=== PATIENT | female | born 1950 | race Caucasian/White ===

== ENCOUNTER → 2017-06-01 | Outpatient (CLI) | payer OTHER ==
[~2017-06-01] MED LIST: ASCO1ER PO; ASPI81CH; ASPI81CH PO; ASPI81EC PO; BACL10; BACL10 PO; BACL20; BACL20 PO; BETASERON; BETASERON IM; BETASERON PO; Baclofen20 MG PO; CALCAVITD PO; CALCAVITDA PO; CHOL10002; CHOL10002 PO; CITRIC ACID PO; CUBICIN RF500 MG; CYAN1000 PO; CYAN1000I IM; CYMBALTA PO; Cipro500 MG PO; DIOVAN/HCT PO; DOXY100 PO; DOXY100T53 PO; DULO30 PO; DULO60 PO; EQL FISH OIL 11 EACH PO; ERGO400 PO; FAMO40 PO; FISH OIL PO; FISH1000 PO; FLUC200 PO; FREESTYLE LITE1 EACH MC; FURO40 PO; Fosamax70 MG PO; GLIP5 PO; GLUC500 PO; GLUCOSAMINE PO; HYDACE5; HYDACE5 PO; HYDACE7.5 PO; HYDCHL12.5; HYDCHL12.5 PO; HYDCHL25 PO; HYDPAM50 PO; HYDR-86 PO; Hydrochlorothia25 MG PO; INS70/30PN SC; INS70/30PN SUBQ; INSDET100 SC; INSDET100 SQ; INSDET100 SUBQ; INSU100I6; INSUASPI SC; INSULANPEN SC; IRRISO BLADIN; IRRISO IR; LEVFLO500 PO; LEVO750 PO; Lidocaine-Priloc5 GM; MAGCHL64ER; MINO100 PO; Micro-K10 MEQ PO; NUVIGIL PO; NYST100TC TOP; Norco 7.5-3251 EACH PO; Novolog Fl100 UNIT/1 SC; OCREVUS IV; OXYB5 PO; OXYC10TA19 PO; POLTRIOPSO BOTHEYES; POTASSIUM CITRATE PO; POTCHL10ER PO; POTCHL20ER PO; POTCIT10 PO; POTCIT5 PO; PRAM.5 PO; PRED20 PO; RENACIDIN IRRIG30 ML; RENACIDIN IRRIG30 ML IR; RISE35 PO; ROSU10TA PO; RXSULTRIDS PO; SERT100; SULTRIDS; SULTRIDS PO; TAMS.4ER; TECFIDERA PO; TMP-POLYMYXIN B10 ML BOTHEYES; TRIM100 PO; VALS80 PO; VANCOMYCIN1.5 GM/251 IV; VITAMIN B IM; VITAMIN D32000 UNI1 PO; Zofran4 MG PO; [UNRECOGNIZED DRUG - OTHER]
[2017-06-01 13:47] LABS: Appearance, Urine Hazy (Clear); Bilirubin, Urine Neg (Neg); Blood, Urine 4+ (Neg); Color, Urine Yellow (P-Yellow); Glucose Qualitative, Urine 1+ (Neg); Ketones, Urine Neg (Neg); Leukocyte Esterase, Urine 3+ (Neg); Nitrite, Urine Pos (Neg); Protein, Urine 2+ (Neg); Urobilinogen, Urine 1+ (Normal)
[2017-06-01 14:07] LABS: White Blood Cells, Urine TNTC /hpf (0-5)
[2017-06-01 14:08] LABS: Bacteria Mod /hpf; Red Blood Cells, Urine 0-2 /hpf (0-2); Squamous Epithelial Cells Not Seen /hpf (Few)
== END | disposition home or self-care (01) ==
LOC: OLS 11:54 → LAB SHORT 11:54
PROVIDERS: Urology
DX: N39.0 Urinary tract infection, site not specified (principal)
CPT/HCPCS: 81001; 87077; 87086; 87186

== ENCOUNTER 2017-06-02 15:07 | Emergency (ER) | payer OTHER ==
[~2017-06-02] VITALS: Ht 170.2 cm; Wt 113.4 kg
[~2017-06-02 15:07] MED LIST changes: -LEVFLO500 PO; -MINO100 PO
[2017-06-02 15:52] LABS: BASOPHILS ABSOLUTE AUTO 0.02 K/mm3 (0.00-0.23); BASOPHILS PERCENT AUTO 0 % (0-2); EOSINOPHILS ABSOLUTE AUTO 0.29 K/mm3 (0.00-0.68); EOSINOPHILS PERCENT AUTO 4 % (0-6); Hematocrit 47.4 % (33.0-51.0); Hemoglobin 15.1 g/dL (11.5-16.0); IMMATURE GRAN ABSOLUTE AUTO 0.02 K/mm3 (0.00-0.10); IMMATURE GRAN PERCENT AUTO 0 % (0-1); LYMPHOCYTES ABSOLUTE AUTO 1.05 K/mm3 (0.84-5.20); LYMPHOCYTES PERCENT AUTO 15 % (21-46); MONOCYTES ABSOLUTE AUTO 1.07 K/mm3 (0.16-1.47); MONOCYTES PERCENT AUTO 15 % (4-13); Mean Corpuscular HGB 31.5 pg (26.0-34.0); Mean Corpuscular HGB Conc 31.9 g/dL (31.5-36.5); Mean Corpuscular Volume 99 fL (80-100); Mean Platelet Volume 10.9 fL (9.1-12.4); NEUTROPHILS ABSOLUTE AUTO 4.65 K/mm3 (1.96-9.15); NEUTROPHILS PERCENT AUTO 65 % (41-73); Platelet Count 157 K/mm3 (150-400); RDW Coefficient Variation 14.8 % (11.7-14.2); RDW Standard Deviation 53.3 fL (35.1-46.3)
[2017-06-02 16:13] LABS: Alanine Aminotransfer (ALT/SGP 33 U/L (12-78); Albumin, Blood 2.7 g/dL (3.4-5.0); Albumin/Globulin Ratio 0.7 (0.8-1.8); Alk Phos 93 U/L (50-136); Anion Gap 7 mmol/L (6-16); Aspartate Aminotrans (AST/SGOT 25 U/L (12-37); Bilirubin, Total 0.4 mg/dL (0.1-1.0); Blood Urea Nitrogen 19 mg/dL (8-24); Bun/Creatinine Ratio 23.4 (12.0-20.0); CO2, Blood 30 mmol/L (21-32); Calcium, Blood 8.9 mg/dL (8.5-10.1); Chloride, Blood 103 mmol/L (98-108); Creatinine, Blood 0.81 mg/dL (0.40-1.00); Glomerular Filtration Rate >60 (60-); Glucose, Blood 259 mg/dL (70-99); Sodium, Blood 140 mmol/L (136-145); Total Protein, Blood 6.7 g/dL (6.4-8.2)
[2017-06-02 16:20] LABS: Influenza A Negative (NEGATIVE); Influenza B Negative (NEGATIVE)
== END 2017-06-02 17:45 | disposition left against medical advice (07) ==
LOC: ER 15:07
PROVIDERS: Emergency Medicine; Physician Assistant
DX: Z53.21 Procedure and treatment not carried out due to patient leaving prior to being seen by health care provider (principal)
CPT/HCPCS: 36415; 80053; 85025; 87804; 99283

== ENCOUNTER → 2017-09-12 | Outpatient (CLI) | payer OTHER | END | disposition home or self-care (01) | LOC: PLD 08:14 → LAB SHORT 08:14 | DX: N95.0 Postmenopausal bleeding (principal) | CPT/HCPCS: 88305 ==

== ENCOUNTER → 2017-09-12 | Outpatient (CLI) | payer OTHER ==
[2017-09-15 10:32] LABS: HPV Genotype 16 Not Detected (NOTDET); HPV Genotype 18 Not Detected (NOTDET)
[2017-09-16 12:11] LABS: HPV High Risk Other Not Detected (NOTDET)
== END | disposition home or self-care (01) ==
LOC: LAB SHORT 13:52 → LAB 13:52
PROVIDERS: Obstetrics & Gynecology
DX: Z01.419 Encounter for gynecological examination (general) (routine) without abnormal findings (principal)
CPT/HCPCS: 87624; G0123

== ENCOUNTER 2017-09-28 12:59 | Emergency (ER) | payer OTHER ==
[~2017-09-28] VITALS: Ht 167.6 cm; Wt 108.9 kg
[2017-09-28 14:13] LABS: BASOPHILS ABSOLUTE AUTO 0.02 K/mm3 (0.00-0.23); BASOPHILS PERCENT AUTO 0 % (0-2); EOSINOPHILS ABSOLUTE AUTO 0.01 K/mm3 (0.00-0.68); EOSINOPHILS PERCENT AUTO 0 % (0-6); Hematocrit 49.3 % (33.0-51.0); Hemoglobin 16.4 g/dL (11.5-16.0); IMMATURE GRAN ABSOLUTE AUTO 0.02 K/mm3 (0.00-0.10); IMMATURE GRAN PERCENT AUTO 0 % (0-1); LYMPHOCYTES ABSOLUTE AUTO 0.55 K/mm3 (0.84-5.20); LYMPHOCYTES PERCENT AUTO 7 % (21-46); MONOCYTES ABSOLUTE AUTO 0.48 K/mm3 (0.16-1.47); MONOCYTES PERCENT AUTO 6 % (4-13); Mean Corpuscular HGB 31.2 pg (26.0-34.0); Mean Corpuscular HGB Conc 33.3 g/dL (31.5-36.5); Mean Corpuscular Volume 94 fL (80-100); Mean Platelet Volume 10.6 fL (9.1-12.4); NEUTROPHILS ABSOLUTE AUTO 6.58 K/mm3 (1.96-9.15); NEUTROPHILS PERCENT AUTO 86 % (41-73); Platelet Count 130 K/mm3 (150-400); RDW Coefficient Variation 14.8 % (11.7-14.2); RDW Standard Deviation 51.1 fL (35.1-46.3); Red Blood Cell Count 5.25 M/mm3 (3.80-5.20); White Blood Cell Count 7.66 K/mm3 (4.00-11.30)
[2017-09-28 14:26] LABS: Alanine Aminotransfer (ALT/SGP 38 U/L (12-78); Albumin, Blood 2.9 g/dL (3.4-5.0); Albumin/Globulin Ratio 0.6 (0.8-1.8); Alk Phos 105 U/L (50-136); Anion Gap 9 mmol/L (6-16); Aspartate Aminotrans (AST/SGOT 34 U/L (12-37); Blood Urea Nitrogen 16 mg/dL (8-24); Bun/Creatinine Ratio 21.9 (12.0-20.0); CO2, Blood 27 mmol/L (21-32); Chloride, Blood 100 mmol/L (98-108); Creatinine, Blood 0.73 mg/dL (0.40-1.00); Globulin, Blood 4.6 g/dL (2.2-4.0); Glomerular Filtration Rate >60 (60-); Glucose, Blood 274 mg/dL (70-99); Potassium, Blood 3.6 mmol/L (3.5-5.5); Sodium, Blood 136 mmol/L (136-145); Total Protein, Blood 7.5 g/dL (6.4-8.2)
[2017-09-28] MEDS ORDERED: LEVFLO500 PO (15:42)
== END 2017-09-28 18:30 | disposition home or self-care (01) ==
LOC: ER 12:59
PROVIDERS: Emergency Medicine
DX: N39.0 Urinary tract infection, site not specified (principal); I05.0 Rheumatic mitral stenosis; Z88.1 Allergy status to other antibiotic agents; Z88.8 Allergy status to other drugs, medicaments and biological substances; Z79.899 Other long term (current) drug therapy; Z79.4 Long term (current) use of insulin; E11.9 Type 2 diabetes mellitus without complications; I10 Essential (primary) hypertension
CPT/HCPCS: 36415; 71045; 80053; 83605; 85025; 93005; 93010; 96365; 99283; J1956; J7030; J7120

== ENCOUNTER 2018-01-13 14:59 | Emergency (ER) | payer OTHER ==
[~2018-01-13] VITALS: Ht 172.7 cm; Wt 108.9 kg
[~2018-01-13 14:59] MED LIST changes: +LEVFLO500 PO
[2018-01-13 15:43] LABS: BASOPHILS ABSOLUTE AUTO 0.05 K/mm3 (0.00-0.23); BASOPHILS PERCENT AUTO 1 % (0-2); EOSINOPHILS ABSOLUTE AUTO 0.29 K/mm3 (0.00-0.68); EOSINOPHILS PERCENT AUTO 4 % (0-6); Hematocrit 45.8 % (33.0-51.0); Hemoglobin 14.6 g/dL (11.5-16.0); IMMATURE GRAN ABSOLUTE AUTO 0.01 K/mm3 (0.00-0.10); IMMATURE GRAN PERCENT AUTO 0 % (0-1); LYMPHOCYTES ABSOLUTE AUTO 0.94 K/mm3 (0.84-5.20); LYMPHOCYTES PERCENT AUTO 12 % (21-46); MONOCYTES ABSOLUTE AUTO 0.63 K/mm3 (0.16-1.47); MONOCYTES PERCENT AUTO 8 % (4-13); Mean Corpuscular HGB Conc 31.9 g/dL (31.5-36.5); Mean Corpuscular Volume 94 fL (80-100); NEUTROPHILS ABSOLUTE AUTO 5.71 K/mm3 (1.96-9.15); NEUTROPHILS PERCENT AUTO 75 % (41-73); Platelet Count 186 K/mm3 (150-400); RDW Coefficient Variation 15.1 % (11.7-14.2); RDW Standard Deviation 52.7 fL (35.1-46.3); Red Blood Cell Count 4.86 M/mm3 (3.80-5.20); White Blood Cell Count 7.63 K/mm3 (4.00-11.30)
[2018-01-13 15:54] LABS: Alanine Aminotransfer (ALT/SGP 24 U/L (12-78); Albumin, Blood 2.9 g/dL (3.4-5.0); Albumin/Globulin Ratio 0.7 (0.8-1.8); Alk Phos 77 U/L (50-136); Anion Gap 5 mmol/L (6-16); Aspartate Aminotrans (AST/SGOT 18 U/L (12-37); Bilirubin, Total 0.7 mg/dL (0.1-1.0); Blood Urea Nitrogen 14 mg/dL (8-24); Bun/Creatinine Ratio 18.7 (12.0-20.0); CO2, Blood 32 mmol/L (21-32); Calcium, Blood 8.6 mg/dL (8.5-10.1); Chloride, Blood 102 mmol/L (98-108); Creatinine, Blood 0.75 mg/dL (0.40-1.00); Globulin, Blood 4.4 g/dL (2.2-4.0); Glomerular Filtration Rate >60 (60-); Glucose, Blood 121 mg/dL (70-99); Potassium, Blood 3.4 mmol/L (3.5-5.5); Sodium, Blood 139 mmol/L (136-145); Total Protein, Blood 7.3 g/dL (6.4-8.2)
[2018-01-13] MEDS ORDERED: MINO100 PO (17:04)
== END 2018-01-13 17:15 | disposition home or self-care (01) ==
LOC: ER 14:59
PROVIDERS: Physician Assistant
DX: L03.116 Cellulitis of left lower limb (principal); Z88.1 Allergy status to other antibiotic agents; Z88.8 Allergy status to other drugs, medicaments and biological substances; Z79.899 Other long term (current) drug therapy; Z79.4 Long term (current) use of insulin; E11.9 Type 2 diabetes mellitus without complications; I10 Essential (primary) hypertension
CPT/HCPCS: 80053; 85025; 93971; 99284-25

== ENCOUNTER 2018-07-30 14:04 | Inpatient (IN) | payer OTHER ==
[~2018-07-30] VITALS: Ht 162.6 cm; Wt 109.0 kg
[~2018-07-30 14:04] MED LIST changes: -INSU100I6; +INSU100I6 SC; +MINO100 PO; -POTCIT5 PO
[2018-07-30 14:34] LABS: PCO2 Arterial 39.5 mmHg (35-45); PO2 Arterial 62.3 mmHg (80-100); pH Blood Arterial 7.41 (7.35-7.45)
[2018-07-30 14:59] LABS: BASOPHILS ABSOLUTE AUTO 0.06 K/mm3 (0.00-0.23); BASOPHILS PERCENT AUTO 0 % (0-2); EOSINOPHILS ABSOLUTE AUTO 0.01 K/mm3 (0.00-0.68); EOSINOPHILS PERCENT AUTO 0 % (0-6); Hematocrit 49.1 % (33.0-51.0); Hemoglobin 15.4 g/dL (11.5-16.0); IMMATURE GRAN PERCENT AUTO 1 % (0-1); LYMPHOCYTES ABSOLUTE AUTO 0.31 K/mm3 (0.84-5.20); LYMPHOCYTES PERCENT AUTO 2 % (21-46); MONOCYTES ABSOLUTE AUTO 0.71 K/mm3 (0.16-1.47); MONOCYTES PERCENT AUTO 5 % (4-13); Mean Corpuscular HGB 28.6 pg (26.0-34.0); Mean Corpuscular HGB Conc 31.4 g/dL (31.5-36.5); Mean Corpuscular Volume 91 fL (80-100); Mean Platelet Volume 9.9 fL (9.1-12.4); NEUTROPHILS ABSOLUTE AUTO 14.53 K/mm3 (1.96-9.15); NEUTROPHILS PERCENT AUTO 92 % (41-73); Platelet Count 151 K/mm3 (150-400); RDW Coefficient Variation 16.2 % (11.7-14.2); RDW Standard Deviation 54.9 fL (35.1-46.3); Red Blood Cell Count 5.38 M/mm3 (3.80-5.20); White Blood Cell Count 15.72 K/mm3 (4.00-11.30)
[2018-07-30 15:15] LABS: Source, Urine Catheter
[2018-07-30 15:18] LABS: Albumin, Blood 2.8 g/dL (3.4-5.0); Albumin/Globulin Ratio 0.6 (0.8-1.8); Bilirubin, Total 1.3 mg/dL (0.1-1.0); Bun/Creatinine Ratio 18.2 (12.0-20.0); Calcium, Blood 8.7 mg/dL (8.5-10.1); Creatinine, Blood 1.48 mg/dL (0.40-1.00); Globulin, Blood 4.7 g/dL (2.2-4.0); Total Protein, Blood 7.5 g/dL (6.4-8.2)
[2018-07-30 15:20] LABS: Appearance, Urine Cloudy (Clear); Blood, Urine 5+ (Neg); Color, Urine Yellow (P-Yellow); Glucose Qualitative, Urine Neg (Neg); Ketones, Urine 1+ (Neg); Leukocyte Esterase, Urine 3+ (Neg); Nitrite, Urine Pos (Neg); Protein, Urine 3+ (Neg); Urobilinogen, Urine 2+ (Normal); pH, Urine 6.5 (5.0-8.0)
[2018-07-30] MEDS ORDERED: Potassium Chlo10 ME2 PO (15:32)
[2018-07-30 15:51] LABS: Bilirubin, Urine 1+ (Neg)
[2018-07-30 15:58] LABS: Bacteria Many /hpf; Squamous Epithelial Cells Mod /hpf (Few); White Blood Cells, Urine TNTC /hpf (0-5)
[2018-07-30 23:50] LABS: Albumin, Blood 2.3 g/dL (3.4-5.0); Albumin/Globulin Ratio 0.5 (0.8-1.8); Bun/Creatinine Ratio 18.9 (12.0-20.0); Calcium, Blood 7.7 mg/dL (8.5-10.1); Creatinine, Blood 1.48 mg/dL (0.40-1.00); Globulin, Blood 4.6 g/dL (2.2-4.0); Potassium, Blood 5.2 mmol/L (3.5-5.5); Total Protein, Blood 6.9 g/dL (6.4-8.2)
--- NOTE | 2018-07-31 01:13 | NUR ---
ADMIT NOTE PATIENT ARRIVED FROM THE [facility] AT APPROX 2200. PATIENT VERY PALE LOOKING EXCEPT FOR HER FEET WHICH APPEARED VERY BLUE. PATIENT ALSO BREATHING VERY RAPIDLY. PATIENT'S PRESENT AT THE BEDSIDE. BEDSIDE REPORT RECEIVED FROM [facility] RN. DR MARTINS PRESENT WELL AND STATED THAT THERE WOULD BE RED DRAINAGE FOR APPROX 24 HOURS. PATIENT HAD AN ELEVATED TEMP UPON ARRIVAL TO THE UNIT. CHARGE NURSE IN ROOM AND AWARE. DR FLORES CALLED AND NOTIFED OF PATIENT'S VITAL SIGNS. PATIENT'S RESPIRATIONS WERE IN THE 20'S-30'S. HER HEART RATE WAS SINUS TACH IN THE 150'S AND HER TEMP WAS 103.1. AND ORDER FOR RECTAL TYLENOL WAS OBTAINED, A STAT CMP WAS ORDERED, [facility] CONSULT WAS ORDERED, AND THE DOXYCYCLINE WAS D/C'D. APPROX 423 MLS OF THE SEPSIS FLUID BOLUS PROTOCOL REMAINED. DR FLORES ORDERED FOR A 1L BOLUS OF NORMAL SALINE TO BE GIVEN IN PLACE OF THE REMAINING 423 MLS. ICE PACKS PROVIDED TO PATIENT WELL COOL WASH CLOTHS AND A FAN. PATIENT NOW APPEARS TO BE RESTING MORE COMFORTABLY. PATIENT'S COLOR HAS IMPROVED AND HER FEET HAVE BECOME LESS BLUE, HOWEVER, PATIENT'S STATES THAT HER FEET WILL SOMETIMES TURN BLUE LIKE THAT. RESPIRATIONS HAVE SLOWED SLIGHTLY AND HER HEART RATE IS IN THE LOW 100'S. PATIENT'S LAST TEMP WAS 98.4. WILL CONTINUE TO MONITOR PATIENT.
[2018-07-31] MEDS ORDERED: DULO60 PO (01:49)
[2018-07-31 03:27] LABS: BASOPHILS ABSOLUTE AUTO 0.05 K/mm3 (0.00-0.23); BASOPHILS PERCENT AUTO 0 % (0-2); Hemoglobin 13.6 g/dL (11.5-16.0); LYMPHOCYTES PERCENT AUTO 1 % (21-46); MONOCYTES ABSOLUTE AUTO 0.41 K/mm3 (0.16-1.47); MONOCYTES PERCENT AUTO 3 % (4-13); Mean Corpuscular HGB 29.2 pg (26.0-34.0); Mean Corpuscular HGB Conc 30.2 g/dL (31.5-36.5); Mean Platelet Volume 9.7 fL (9.1-12.4); Platelet Count 107 K/mm3 (150-400); RDW Coefficient Variation 16.3 % (11.7-14.2); RDW Standard Deviation 58.4 fL (35.1-46.3); Red Blood Cell Count 4.65 M/mm3 (3.80-5.20); White Blood Cell Count 16.07 K/mm3 (4.00-11.30)
[2018-07-31 03:30] LABS: EOSINOPHILS ABSOLUTE AUTO 0.01 K/mm3 (0.00-0.68); EOSINOPHILS PERCENT AUTO 0 % (0-6); IMMATURE GRAN ABSOLUTE AUTO 0.21 K/mm3 (0.00-0.10); IMMATURE GRAN PERCENT AUTO 1 % (0-1); Mean Corpuscular Volume 97 fL (80-100); NEUTROPHILS ABSOLUTE AUTO 15.19 K/mm3 (1.96-9.15); NEUTROPHILS PERCENT AUTO 95 % (41-73)
[2018-07-31 03:46] LABS: Albumin, Blood 2.2 g/dL (3.4-5.0); Albumin/Globulin Ratio 0.5 (0.8-1.8); Bilirubin, Total 0.8 mg/dL (0.1-1.0); Bun/Creatinine Ratio 16.8 (12.0-20.0); Calcium, Blood 7.5 mg/dL (8.5-10.1); Creatinine, Blood 1.67 mg/dL (0.40-1.00); Globulin, Blood 4.2 g/dL (2.2-4.0); Potassium, Blood 4.2 mmol/L (3.5-5.5); Total Protein, Blood 6.4 g/dL (6.4-8.2)
[2018-07-31 03:48] LABS: BAND PERCENT MAN 15 % (0-8); BASOPHILS PERCENT MAN 0 % (0-2); EOSINOPHILS PERCENT MAN 0 % (0-6); LYMPHOCYTES ABSOLUTE MAN 0.16 K/mm3 (0.84-5.20); LYMPHOCYTES PERCENT MAN 1 % (21-46); MONOCYTES ABSOLUTE MAN 0.48 K/mm3 (0.16-1.47); MONOCYTES PERCENT MAN 3 % (4-13); NEUTROPHILS ABSOLUTE MAN 15.42 K/mm3 (1.96-9.15); SEG NEUTROPHILS PERCENT MAN 81 % (41-73); TOTAL CELLS COUNTED 100
--- NOTE | 2018-07-31 07:47 | NUR ---
SHIFT SUMMARY PATIENT CONTINUES TO APPEAR TO BE FEELING BETTER. PATIENT MORE ALERT AND AWAKE AND ABLE TO CARRY ON CONVERSATIONS WITH STAFF. PATIENT APPEARED TO SLEEP WELL FOR SEVERAL HOURS WELL. VITAL SIGNS CHARTED. HEART RATE CURRENTLY IN THE LOW 100'S AND PATIENT'S RESPIRATIONS MUCH LESS LABORED. SUPRAPUBIC CATHETER AND NEPHROSTOMY APPEAR TO BE PATENT AND DRAINING AT THIS TIME, HOWEVER THERE ARE BLOOD CLOTS PRESENT. PATIENT TURNED Q2H. REPORT GIVEN TO ONCOMING RN.
--- NOTE | 2018-07-31 14:23 | NUR ---
I spoke with the of the patient, and he explained that daily the bladder is irrigated with 120 cc of sterile water, and then the Renecidin is instilled and left to dwell for 10 minutes while the drain tubing is clamped. This process was followed per Dr. Lindquist's instructions to continue the method and medication which is used at home. The drainage from the left nephrostomy has been 200 cc so far this shift, dark red in color, without visible clots. The drainage from the suprapubic catheter is now clear yellow with occasional small red clots. The pt tolerated the procedure without any pain or c/o of discomfort.
--- NOTE | 2018-07-31 15:11 | NUR ---
Telephone report given to Marimar Dunlap RN, at this time.
--- NOTE | 2018-07-31 15:26 | NUR ---
SUPRAPUBIC CATHETER DRAINING CLEAR YELLOW URINE WITH OCCASIONAL WHITE AND RED CLOTS. LEFT NEPROSTOMY DRAINING CRANBERRY JUICE-LOOKING URINE, NOT DARK RED THIS MORNING.
--- NOTE | 2018-07-31 19:21 | NUR ---
SHIFT SUMMARY PT IS A PCU TRANSFER THIS AFTERNOON. NO REQUESTS OR COMPLAINTS THIS SHIFT. IVF INFUSING WITHOUT DIFFICULTY. PT'S SPOUSE AT BEDSIDE. PT ATE WITH SPOUSE'S ASSISTANCE. NO ACUTE CHANGES AT THIS TIME. CALL LIGHT IN REACH. WILL CONTINUE TO MONITOR AND REPORT TO ONCOMING RN.
[2018-08-01 03:42] LABS: Hematocrit 38.4 % (33.0-51.0); Hemoglobin 11.7 g/dL (11.5-16.0); Mean Corpuscular HGB 28.5 pg (26.0-34.0); Mean Corpuscular HGB Conc 30.5 g/dL (31.5-36.5); Mean Corpuscular Volume 93 fL (80-100); Mean Platelet Volume 10.5 fL (9.1-12.4); Platelet Count 86 K/mm3 (150-400); RDW Coefficient Variation 16.4 % (11.7-14.2); RDW Standard Deviation 56.4 fL (35.1-46.3); Red Blood Cell Count 4.11 M/mm3 (3.80-5.20)
[2018-08-01 03:59] LABS: Bun/Creatinine Ratio 24.4 (12.0-20.0); Calcium, Blood 8.2 mg/dL (8.5-10.1); Creatinine, Blood 1.23 mg/dL (0.40-1.00)
[2018-08-01 04:00] LABS: Vancomycin, Trough 19.2 ug/mL (5.0-10.0)
[2018-08-01 04:16] LABS: BAND PERCENT MAN 23 % (0-8); BASOPHILS PERCENT MAN 0 % (0-2); EOSINOPHILS PERCENT MAN 0 % (0-6); LYMPHOCYTES ABSOLUTE MAN 0.38 K/mm3 (0.84-5.20); LYMPHOCYTES PERCENT MAN 4 % (21-46); MONOCYTES ABSOLUTE MAN 0.09 K/mm3 (0.16-1.47); MONOCYTES PERCENT MAN 1 % (4-13); NEUTROPHILS ABSOLUTE MAN 9.21 K/mm3 (1.96-9.15); SEG NEUTROPHILS PERCENT MAN 72 % (41-73); TOTAL CELLS COUNTED 100
--- NOTE | 2018-08-01 07:49 | NUR ---
08/01/18 0600 URINARY TUBES DRAINING WELL. BOTH WITH BLOODY OUTPUT. VITALS STABLE. DENIES ANY PAIN. PT NEEDS TOTAL CARE WITH ALL ASPECTS OF [facility] living. turned q 2 hours.
--- NOTE | 2018-08-01 19:00 | NUR ---
PT. SLEEPING FRIEND AT BEDSIDE. NO NOTEABLE CHANGES THIS SHIFT. PT. HAD A BATH TODAY AND PERICARE PERFORMED. PT. APPEARS TO HAVE A PROLAPSED ANUS. PT. ALSO BLEEDING VAGINALLY WHICH PT. SAYS IS NORMAL. PROBABLE DISCHARGE TOMORROW AND TO FOLLOW UP WITH UROLOGIST.
--- NOTE | 2018-08-02 05:00 | NUR ---
VSS, AFEBRILE, A/O BUT FORGETFUL AT TIMES, CAME TO VISIT, SLEPT WELL OVERNOC, NO COMPLAINTS, SUPRAPUBIC CATH DRAINING WELL, NEPH TUBE DRAINING WELL. NO VAGINAL BLEEDING NOTED, MEDS WHOLE IN APPLESAUCE, SEPTEMBER D/C TODAY.
[2018-08-02] MEDS ORDERED: LEVFLO500 PO (13:43)
--- NOTE | 2018-08-02 14:45 | NUR ---
PT. DISCHARGED HOME WITH SPOUSE. LIFT USED TO PUT PT. IN HER OWN MOTORIZED WHEELCHAIR. HOME WITH NEPHROSTOMY AND SUPREPUBIC CATHETER. HOMEHEALTH TO FOLLOW UP TOMORROW.
[2018-08-07] MEDS ORDERED: LIDOCAINE-PRIL1 EACH TOP (17:59)
[2018-08-07] MEDS ORDERED: UROCIT-K5 MEQ PO (19:28)
[2018-08-10] MEDS ORDERED: BACLOFEN5 MG PO (17:23)
[2018-08-10] MEDS ORDERED: LEVO750 PO (17:30)
== END 2018-08-02 14:45 | disposition home health service (06) | DRG 871 ==
LOC: ER 14:04 → MEDS 17:12 → ERHOLD 17:12 → MEDS 21:02 → PCU 22:01 → MEDS 07-31 15:38 → ENPENDDIS 08-02 12:37 → MEDS 08-02 14:45
PROVIDERS: Emergency Medicine; Hospitalist; ADMIT Internal Medicine
PROC: 0WHG33Z Insertion of Infusion Device into Peritoneal Cavity, Percutaneous Approach (ICD-10-PCS; principal; 2018-07-31)
DX: A41.9 Sepsis, unspecified organism (principal); R65.21 Severe sepsis with septic shock; G82.50 Quadriplegia, unspecified; T83.511A Infection and inflammatory reaction due to indwelling urethral catheter, initial encounter; N12 Tubulo-interstitial nephritis, not specified as acute or chronic; N13.1 Hydronephrosis with ureteral stricture, not elsewhere classified; N17.9 Acute kidney failure, unspecified; Z68.43 Body mass index [BMI] 50.0-59.9, adult; E11.9 Type 2 diabetes mellitus without complications; Z79.4 Long term (current) use of insulin; I10 Essential (primary) hypertension; Z87.440 Personal history of urinary (tract) infections; E66.01 Morbid (severe) obesity due to excess calories; F32.9 Major depressive disorder, single episode, unspecified; E78.5 Hyperlipidemia, unspecified; G25.81 Restless legs syndrome; G35 Multiple sclerosis; N31.2 Flaccid neuropathic bladder, not elsewhere classified; K21.9 Gastro-esophageal reflux disease without esophagitis; L89.152 Pressure ulcer of sacral region, stage 2
CPT/HCPCS: 36415; 36600; 50432; 71045; 74176; 80048; 80053; 80202; 81001; 82803; 82947; 83605; 85025; 87040; 87077; 87086; 87186; 93005; 93010; 96361; 96365; 96366; 96367; 99152; 99153; 99285-25; C1769; J0696; J1644; J1956; J2250; J3010; J3370; J7030; J7040; J7050; J7120; Q9967

== ENCOUNTER 2018-11-29 10:55 | Inpatient (IN) | payer OTHER ==
[~2018-11-29] VITALS: Ht 162.6 cm; Wt 97.5 kg
[~2018-11-29 10:55] MED LIST changes: +LIDOCAINE-PRIL1 EACH TOP; +Mirapex1.5 MG PO; +Potassium Chlo10 ME2 PO; +UROCIT-K5 MEQ PO
[2018-11-29] MEDS ORDERED: DULO30 PO (11:28)
[2018-11-29] MEDS ORDERED: ROSU10TA PO (11:29)
[2018-11-29] MEDS ORDERED: Novolog100 UNIT/1 SQ (11:29)
[2018-11-29] MEDS ORDERED: OXYC10TA19 PO (11:30)
[2018-11-29 11:40] LABS: Source, Urine Catheter
[2018-11-29 11:50] LABS: Appearance, Urine Hazy (Clear); Bilirubin, Urine Neg (Neg); Blood, Urine 5+ (Neg); Color, Urine Yellow (P-Yellow); Glucose Qualitative, Urine Neg (Neg); Ketones, Urine Neg (Neg); Leukocyte Esterase, Urine 3+ (Neg); Nitrite, Urine Pos (Neg); Protein, Urine 3+ (Neg); Specific Gravity, Urine 1.015 (1.003-1.022); Urobilinogen, Urine NORM (Normal); pH, Urine 6.5 (5.0-8.0)
[2018-11-29 11:51] LABS: BASOPHILS ABSOLUTE AUTO 0.04 K/mm3 (0.00-0.23); BASOPHILS PERCENT AUTO 0 % (0-2); EOSINOPHILS ABSOLUTE AUTO 0.03 K/mm3 (0.00-0.68); EOSINOPHILS PERCENT AUTO 0 % (0-6); Hematocrit 48.4 % (33.0-51.0); Hemoglobin 14.7 g/dL (11.5-16.0); IMMATURE GRAN ABSOLUTE AUTO 0.06 K/mm3 (0.00-0.10); IMMATURE GRAN PERCENT AUTO 1 % (0-1); LYMPHOCYTES ABSOLUTE AUTO 0.92 K/mm3 (0.84-5.20); LYMPHOCYTES PERCENT AUTO 8 % (21-46); MONOCYTES ABSOLUTE AUTO 1.15 K/mm3 (0.16-1.47); MONOCYTES PERCENT AUTO 10 % (4-13); Mean Corpuscular HGB 27.8 pg (26.0-34.0); Mean Corpuscular HGB Conc 30.4 g/dL (31.5-36.5); Mean Corpuscular Volume 92 fL (80-100); Mean Platelet Volume 10.3 fL (9.1-12.4); NEUTROPHILS ABSOLUTE AUTO 9.16 K/mm3 (1.96-9.15); NEUTROPHILS PERCENT AUTO 81 % (41-73); Platelet Count 145 K/mm3 (150-400); RDW Coefficient Variation 17.2 % (11.7-14.2); RDW Standard Deviation 57.7 fL (35.1-46.3); Red Blood Cell Count 5.29 M/mm3 (3.80-5.20); White Blood Cell Count 11.36 K/mm3 (4.00-11.30)
[2018-11-29 12:08] LABS: Albumin, Blood 2.6 g/dL (3.4-5.0); Albumin/Globulin Ratio 0.5 (0.8-1.8); Bilirubin, Total 0.7 mg/dL (0.1-1.0); Bun/Creatinine Ratio 25.2 (12.0-20.0); Calcium, Blood 9.2 mg/dL (8.5-10.1); Creatinine, Blood 1.07 mg/dL (0.40-1.00); Globulin, Blood 5.5 g/dL (2.2-4.0); Potassium, Blood 3.6 mmol/L (3.5-5.5); Total Protein, Blood 8.1 g/dL (6.4-8.2)
[2018-11-29 12:12] LABS: International Normalized Ratio 1.08; Prothrombin Time Results 11.4 Sec (9.7-11.5)
[2018-11-29 12:15] LABS: Red Blood Cells, Urine TNTC /hpf (0-2); Squamous Epithelial Cells Few /hpf (Few); White Blood Cells, Urine TNTC /hpf (0-5)
[2018-11-29 12:17] LABS: Bacteria Few /hpf
[2018-11-29] MEDS ORDERED: MYRBETRIQ50 MG PO (12:55)
[2018-11-29] MEDS ORDERED: UROCIT-K5 MEQ PO (12:56)
[2018-11-29] MEDS ORDERED: CHOL10002 PO (12:57)
[2018-11-29] MEDS ORDERED: FISH OIL 1,2001 EACH PO (12:58)
[2018-11-29] MEDS ORDERED: ALLERCLEAR10 MG PO (12:58)
--- NOTE | 2018-11-29 18:27 | NUR ---
END OF SHIFT; PT ARRIVED TO PCU FROM ER THIS AFTERNOON. SHE IS A FUNCTIONING MS QUAD PER HER SPOUSE. ONLY LIMB THAT PATIENT HAS ANY CONTROL OVER IS HER RIGHT HAND THAT HAS MINIMAL MOVEMENT. HER ARMS AND LEGS ARE NUMB AND TINGLY. SHE HAS ONLY GROSS MOVEMENTS OF THOSE LIMBS. PT SITS HUNCHED OVER. SHE IS VERBAL AND ORIENTED TO PERSON PLACE AND TIME. SPOUSE IS HER AQUATIC CENTRE MANAGER AT HOME. SHE HAS A SUPRA PUBIC CATHETER THAT WAS CHANGED BY HOME HEALTH TODAY PRIOR TO PATIENT COMING IN. PER [facility] CONTROL CATHETER DOES NOT NEED TO BE CHANGED. CLEARANCE SWABS ARE OBTAINED AND SENT TO LAB. LACTATED RINGERS INFUSING AT WO RATE FOR 2 LITER BOLUS THEN 150ML/HR PER . LACTIC ACID IS NOW 3.4 WILL CONTINUE TO MONITOR THIS PATIENT UNTIL REPORT AND HAND OFF TO NOC SHIFT RN.
--- NOTE | 2018-11-29 23:28 | NUR ---
ASSUMED CARE OF PATIENT AT APPROXIMATELY 1910 FROM [facility] Back RN. PATIENT ALERT AND ORIENTED TO SELF AND FAMILY; DROWSY AT TIMES. REPORTED THAT PATIENT IS A FUNCTIONING QUADRIPLEGIC; PATIENT REPORTS HE IS ABLE TO MOVE HER RIGHT ARM SOME; GROSS MOVEMENT IN LEGS AND LEFT ARM; N/T THROUGHOUT BODY. PATIENT IS NORMALLY CHAIRFAST AT HOME PER REPORT; PATIENT SITS SLOUCHED OVER. PATIENT DENIES PAIN, DIZZINESS AND NAUSEA. SUPRAPUBIC CATH DRAINING KELLEY COLORED URINE; SKIN ON BACK IS RED; RED UNDER SKIN FOLDS; RED SKIN PATCH NEAR SUPRAPIC CATH INSERTION. 2L LR BOLUS INFUSING AT SHIFT CHANGE INTO MEDIPORT; LR INFUSING PER ORDER. PATIENT'S WAS BEDSIDE UNTIL SHORTLY BEFORE 2200; IS ATTENTIVE AND PATIENT'S CAREGIVER AT HOME. MEPILEX PLACED TO HEELS; TURNED FREQUENTLY; PATIENT HAS EYE CRUST AND DISCHARGE; REQUESTS TO BE WIPED WITH WET WASHCLOTH EVERY FEW HOURS. SCDS IN PLACE. PATIENT CURRENTLY RESTING IN BED; CALL LIGHT IN REACH; BED IN LOWEST POSISITON; WILL CONTINUE TO MONITOR AND ASSESS UNTIL END OF SHIFT.
--- NOTE | 2018-11-30 01:56 | NUR ---
REPORT GIVEN TO REESE PEDRAZA. NO ACUTE CHANGES TO REPORT.
--- NOTE | 2018-11-30 02:01 | NUR ---
ASSUMED CARE FROM [facility]. PATIENT REQUESTED TO BE TURNED. REPOSITIONED AND PLACED PILLOWS UNDER EACH HIP. PATIENT DENIES ANY OTHER NEEDS. NO CHANGES IN ASSESSMENT AT THIS TIME.
[2018-11-30 04:07] LABS: Anion Gap 8 mmol/L (6-16); Blood Urea Nitrogen 21 mg/dL (8-24); Bun/Creatinine Ratio 22.3 (12.0-20.0); CO2, Blood 29 mmol/L (21-32); Calcium, Blood 8.8 mg/dL (8.5-10.1); Chloride, Blood 100 mmol/L (98-108); Creatinine, Blood 0.94 mg/dL (0.40-1.00); Glomerular Filtration Rate >60 (60-); Glucose, Blood 172 mg/dL (70-99); Potassium, Blood 3.2 mmol/L (3.5-5.5); Sodium, Blood 137 mmol/L (136-145)
--- NOTE | 2018-11-30 05:38 | NUR ---
PATIENT POTASSIUM WAS LOW AT 3.[address] NOT[address]IED [address] GARBER WHO ORDER 40MEQ PO X1. NO FURTHER ORDERS WERE TAKEN. GIVEN TO PATIENT.
--- NOTE | 2018-11-30 08:17 | NUR ---
pt laying in bed watching tv, a/ox2, seems a bit flat affect,cooperative with care, follows commands, voice is a soft whisper, lungs are clear in upper cramer, dim in bases, hrr, tele in place, sounds are distant, running sr per montior, see strip, edema noted to b/l le, +2, appears to have foot drop, scuds are in place, ppp+2, cap refill <3sec, vs stable, afebrile, iv site to hand, and mediport is accessed, infusing lr at 150mls/hr, site is clear, bt x4, hypoactive, suprapubic cath in place a bit red around site, coccyx is pink, heels are pink, feet are floated, she is a lift to move, only can move right hand, jarett, call light in reach.
--- NOTE | 2018-11-30 15:34 | NUR ---
pt laying in bed visiting with gato. gave her medications, asked her to allow this nurse to reposition she said no she is comfortable, did some education on why we need to turn regularly, she said oh, and allowed to be turned. no further needs, call light in reach.
--- NOTE | 2018-11-30 16:25 | NUR ---
Per admit trigger, I met with Yasmeen and her , Don to discuss Advanced Care Planning. Yasmeen was very clear she did not want CPR and only limited medical interventions, No intubation. POSLT completed. Awaiting physian's signature.
--- NOTE | 2018-11-30 17:53 | NUR ---
NO ACUTE CHANGES THIS SHIFT. SPOUCE IN ROOM MOST OF THE DAY. CALL LIGHT IN REACH.
--- NOTE | 2018-11-30 21:10 | NUR ---
PATIENT GIVEN 140 UNITS OF LANTUS INSTEAD OF THE 150 ORDER. PATIENT'S WHO GAVE THE HOME DOSE WAS INCORRECT IN SAYING 150 WHEN SHE ADMITTED. STATES SHE HAS BEEN RECIEVING 140 AT HOME AND DOSE NOT FEEL COMFORTABLE WITH THE INCREASE AT THIS TIME.
[2018-12-01 03:57] LABS: BASOPHILS ABSOLUTE AUTO 0.04 K/mm3 (0.00-0.23); BASOPHILS PERCENT AUTO 1 % (0-2); EOSINOPHILS ABSOLUTE AUTO 0.25 K/mm3 (0.00-0.68); EOSINOPHILS PERCENT AUTO 3 % (0-6); Hematocrit 38.9 % (33.0-51.0); Hemoglobin 11.8 g/dL (11.5-16.0); IMMATURE GRAN ABSOLUTE AUTO 0.04 K/mm3 (0.00-0.10); IMMATURE GRAN PERCENT AUTO 1 % (0-1); LYMPHOCYTES ABSOLUTE AUTO 0.91 K/mm3 (0.84-5.20); LYMPHOCYTES PERCENT AUTO 11 % (21-46); MONOCYTES ABSOLUTE AUTO 1.27 K/mm3 (0.16-1.47); MONOCYTES PERCENT AUTO 16 % (4-13); Mean Corpuscular HGB 27.5 pg (26.0-34.0); Mean Corpuscular HGB Conc 30.3 g/dL (31.5-36.5); Mean Corpuscular Volume 91 fL (80-100); Mean Platelet Volume 10.8 fL (9.1-12.4); NEUTROPHILS ABSOLUTE AUTO 5.62 K/mm3 (1.96-9.15); NEUTROPHILS PERCENT AUTO 69 % (41-73); Platelet Count 163 K/mm3 (150-400); RDW Coefficient Variation 16.8 % (11.7-14.2); RDW Standard Deviation 56.1 fL (35.1-46.3); Red Blood Cell Count 4.29 M/mm3 (3.80-5.20); White Blood Cell Count 8.13 K/mm3 (4.00-11.30)
[2018-12-01 04:15] LABS: Albumin, Blood 2.1 g/dL (3.4-5.0); Anion Gap 7 mmol/L (6-16); Blood Urea Nitrogen 19 mg/dL (8-24); Bun/Creatinine Ratio 23.4 (12.0-20.0); CO2, Blood 29 mmol/L (21-32); Calcium, Blood 9.3 mg/dL (8.5-10.1); Chloride, Blood 101 mmol/L (98-108); Creatinine, Blood 0.81 mg/dL (0.40-1.00); Glomerular Filtration Rate >60 (60-); Glucose, Blood 184 mg/dL (70-99); Phosphorus, Blood 2.5 mg/dL (2.5-4.9); Potassium, Blood 3.2 mmol/L (3.5-5.5); Sodium, Blood 137 mmol/L (136-145)
--- NOTE | 2018-12-01 04:57 | NUR ---
PATIENT POTASSIUM 3.2 AGAIN THIS MORNING DESPITE HAVE HER DAILY SCHEDULED 40MEQ AND AN EXTRA 40 MEQ DUE TO THE LOW LEVEL. DR. GARBER NOTIFIED AND ORDER TAKEN FOR POTASSIUM 80MEQ PO X1.
--- NOTE | 2018-12-01 08:52 | NUR ---
AM NOTE. ASSUMED CARE OF PT APROX 0700, PT IS A&Ox4 AND CHAIR FAST AT HOME. PT HAS HX OF MS AND HAS VERY MINIMAL USE OF HER RIGHT ARM ONLY. PT IS VERY SLEEPY THIS MORNING BUT WAKES EASILY. PT IS Q2 TURNS AND HAS DOCUMENTED PRESSURE ULCERS PREVIOUS TO ADMIT. PT'S VS STABLE AT THIS TIME, PT DENIES ANY PAIN, CHEST PAIN/PRESSURE, N/V OR SOB. PT'S L/S CLEAR T/O AND DIM IN THE BASES, BT PRESENT AND HYPOACTIVE, ABD IS SOFT AND SLIGHTLY TENDER TO PALP. PT HAS SOFT TOUCH CALL LIGHT IN REACH AND IS ABLE TO USE THIS WITH HER RIGHT HAND/ARM. AT THE BEDSIDE VERY INVOLVED IN HER CARE AND HELPFUL TO STAFF. CALL LIGHT IN REACH, WILL CONTINUE TO MONITOR.
--- NOTE | 2018-12-01 18:23 | NUR ---
SHIFT SUMMARY. NO ACUTE CHANGES NOTED THIS SHIFT. PT'S VS HAVE BEEN STABLE. PT HAS REFUSED SOME THE Q2 TURNS THIS SHIFT. PT'S SUPERPUBIC CATH HAS BEEN LEAKING MOST OF THE SHIFT, BLUE CHUX PADS HAVE BEEN PLACED TO HELP PREVENT SOAKING THE BED AND THE GOWN. PT'S STATES THAT AT HOME THE CATH GETS FLUSHED AT LEAST ONCE A DAY TO PREVENT CLOGGING OF THE LINE, PROVIDER WAS CALLED AND ORDERS TO FLUSH THE CATH PER WERE OBTAINED. PT'S HAS BEEN AT THE BEDSIDE MOST OF THIS SHIFT, HE IS VERY HELPFUL AND INVOLVED IN HER CARE. CALL LIGHT IN REACH, BED IS LOCKED AND LOW WILL CONTINUE TO MONITOR UNTIL REPORT IS GIVEN TO ONCOMING RN.
--- NOTE | 2018-12-01 20:00 | NUR ---
ASSUMED CARE OF PT AT 1915. REPORT RECEIVED. PT PRESENTS IN BED. VERY FLAT AFFECT. USES WHISPER FOR VOICE. IS ABLE TO MAKE HER NEEDS KNOWN. AT BEDSIDE. DISCUSSED PLAN OF CARE FOR THIS SHIFT. Q 2 HOUR TURNS. SUPRAPUBIC CATHETER PATENT AT THIS TIME. WILL MONITOR. WILL REVIEW CHART AND PLAN OF CAR FOR THIS PT.
--- NOTE | 2018-12-02 02:00 | NUR ---
HAVE CONTINUED Q 2 HOUR TURNS. PT FORGETFUL AT TIMES. HAS BEEN MEDICATE ONCE WITH OXYCODONE FOR COMPLAINT OF GENERALIZED PAIN. PT HAS BEEN ABLE TO SLEEP SOME THIS NIGHT AFTER TURNS. WILL CONTINUE TO MONITOR PT.
[2018-12-02 05:31] LABS: BASOPHILS ABSOLUTE AUTO 0.03 K/mm3 (0.00-0.23); BASOPHILS PERCENT AUTO 0 % (0-2); EOSINOPHILS ABSOLUTE AUTO 0.34 K/mm3 (0.00-0.68); EOSINOPHILS PERCENT AUTO 5 % (0-6); Hematocrit 38.1 % (33.0-51.0); Hemoglobin 11.7 g/dL (11.5-16.0); IMMATURE GRAN ABSOLUTE AUTO 0.04 K/mm3 (0.00-0.10); IMMATURE GRAN PERCENT AUTO 1 % (0-1); LYMPHOCYTES ABSOLUTE AUTO 1.08 K/mm3 (0.84-5.20); LYMPHOCYTES PERCENT AUTO 14 % (21-46); MONOCYTES ABSOLUTE AUTO 0.72 K/mm3 (0.16-1.47); MONOCYTES PERCENT AUTO 10 % (4-13); Mean Corpuscular HGB 27.2 pg (26.0-34.0); Mean Corpuscular HGB Conc 30.7 g/dL (31.5-36.5); Mean Corpuscular Volume 89 fL (80-100); Mean Platelet Volume 10.2 fL (9.1-12.4); NEUTROPHILS PERCENT AUTO 71 % (41-73); Platelet Count 168 K/mm3 (150-400); RDW Coefficient Variation 16.8 % (11.7-14.2); RDW Standard Deviation 54.6 fL (35.1-46.3); White Blood Cell Count 7.61 K/mm3 (4.00-11.30)
[2018-12-02 05:49] LABS: Albumin, Blood 1.9 g/dL (3.4-5.0); Anion Gap 4 mmol/L (6-16); Blood Urea Nitrogen 14 mg/dL (8-24); Bun/Creatinine Ratio 18.1 (12.0-20.0); CO2, Blood 32 mmol/L (21-32); Chloride, Blood 102 mmol/L (98-108); Creatinine, Blood 0.77 mg/dL (0.40-1.00); Glomerular Filtration Rate >60 (60-); Glucose, Blood 94 mg/dL (70-99); Phosphorus, Blood 3.1 mg/dL (2.5-4.9); Potassium, Blood 3.4 mmol/L (3.5-5.5); Sodium, Blood 138 mmol/L (136-145)
--- NOTE | 2018-12-02 06:15 | NUR ---
PT AWAKENS AT APPROXIMATELY 0300 TONIGHT AND BEGINS YELLING. WHEN ENTERING ROOM SHE ASKS WHERE HER IS. INFORMED PT THAT HER WENT HOME IN EVENING TIME, AND THAT IT WAS EARLY IN AM. PT REORIENTS. ALTHOUGH, SHE FALLS ASLEEP AND AT APPROX EVERY 20 MINUTES TO 30 MINUTES WOULD AWAKEN AND BEGIN YELLING AGAIN. PT CURRENTLY RESTING IN BED. SUPRAPUBIC CATHER HAS REMAINED PATENT THROUGHOUT THE NIGHT. HAS NOT NEEDED TO BE IRRIGATED. PT HAS TOLERATED ANTIBIOTIC THERAPY WELL WITHOUT S/S ADVERSE REACTIONS. WILL CONTINUE TO MONITOR PT, AND WILL REPORT OFF TO ONCOMING RN.
--- NOTE | 2018-12-02 08:15 | NUR ---
AM NOTE. ASSUMED CARE OF PT APROX 0700, PT IS A&Ox4 AND BEDBOUND. PT'S BP HAS BEEN HYPERTENSIVE, OTHER VS HAVE BEEN STABLE. PT'S SUPER PUBIC CATH HAS BEEN LEAKING, IT HAS BEEN FLUSHED WITH STERILE WATER PRN. SURICAL CONSULT HAS BEEN CALLED IN TO REVIEW PLACEMENT OF MEDIPORT. CALL LIGHT IN REACH, BED IS LOCKED AND LOW WILL CONTINUE TO MONTIOR.
[2018-12-02 09:29] LABS: Vancomycin, Trough 13.7 ug/mL (5.0-10.0)
--- NOTE | 2018-12-02 17:41 | NUR ---
SHIFT SUMMARY. NO ACUTE CHANGES NOTED THIS SHIFT. PT HAS BEEN HYPERTENSIVE AND MEDICATED PER EMAR. PT HAS NOT C/O OF PAIN TODAY. PT'S SUPERPUBIC CATH HAS NOT LEAKED THIS SHIFT. PT HAS REFUSED Q2 TURNS TODAY, PT WAS EDUCATED ON SKIN BREAKDOWN PREVENT AND PRESSURE ULCER PREVENT, PT STATED HER UNDERSTANDING. PT'S AT THE BEDSIDE MOST OF THIS SHIFT. THIS RN AND PT'S NOTICE THAT THE PT WAS MORE SLEEPY TODAY AND WAS HARDER TO WAKE UP THAN SHE WAS YESTERDAY. PT'S VS HAVE BEEN STABLE EXCEPT THE PT'S HYPERTENSION. CALL LIGHT IN REACH, BED IS LOCKED AND LOW WILL CONTINUE TO MONITOR UNTIL REPOT IS GIVEN TO ONCOMING RN.
--- NOTE | 2018-12-02 20:15 | NUR ---
ASSUME CARE REPORT RECIEVED FROM OFF GOING RIGO TYLER AT 1935. RESTS QUIETLY WITH SPOUSE AT BEDSIDE. ATTENTIVE TO NEEDS/CARES. LUNG SOUNDS CLEAR UPPER LOBES WITH DECREASEED SOUNDS IN THE BASES. ABDOMEN SOFT WITH BOWEL SOUNDS FOUR QUADS. SUPRA PUBIC CATH PATENT DRAINING LIGHT KELLEY URINE NYSTATIN AND PAD CHANGED TO PANUS UNDER BREASTS AND BACK FOR REDDNESS. TOLERATES PO MEDS WELL. HOWEVER AFTER REPOSITIONING HAS APPROX 200ML OF UNDIGESTED EMESIS TOOK APPROX 200ML PEPSI GIVEN BY SPOUSE AFTER MEDS. PARTIAL BED BATH AND LINEN CHANGE. REPOSITIONED TO R SIDE PER PT REQUEST. DRESSINGS TO HEELS ARE DRY INTACT. REMAINS IN CONTACT ISOLATION. CONTINUE TO MONITOR AND REPORT CHANGE IN PATIENT CONDITION
--- NOTE | 2018-12-03 00:15 | NUR ---
REFUSES REPOSITIONING AND EYE GTTS. CONTINUE TO MONIOR
[2018-12-03 03:57] LABS: BASOPHILS ABSOLUTE AUTO 0.05 K/mm3 (0.00-0.23); BASOPHILS PERCENT AUTO 1 % (0-2); EOSINOPHILS ABSOLUTE AUTO 0.24 K/mm3 (0.00-0.68); EOSINOPHILS PERCENT AUTO 3 % (0-6); Hematocrit 39.3 % (33.0-51.0); Hemoglobin 12.3 g/dL (11.5-16.0); IMMATURE GRAN ABSOLUTE AUTO 0.06 K/mm3 (0.00-0.10); IMMATURE GRAN PERCENT AUTO 1 % (0-1); LYMPHOCYTES ABSOLUTE AUTO 1.42 K/mm3 (0.84-5.20); LYMPHOCYTES PERCENT AUTO 17 % (21-46); MONOCYTES ABSOLUTE AUTO 0.87 K/mm3 (0.16-1.47); MONOCYTES PERCENT AUTO 10 % (4-13); Mean Corpuscular HGB Conc 31.3 g/dL (31.5-36.5); Mean Corpuscular Volume 86 fL (80-100); Mean Platelet Volume 10.4 fL (9.1-12.4); NEUTROPHILS ABSOLUTE AUTO 5.85 K/mm3 (1.96-9.15); NEUTROPHILS PERCENT AUTO 69 % (41-73); Platelet Count 226 K/mm3 (150-400); RDW Coefficient Variation 16.8 % (11.7-14.2); RDW Standard Deviation 52.5 fL (35.1-46.3); Red Blood Cell Count 4.56 M/mm3 (3.80-5.20); White Blood Cell Count 8.49 K/mm3 (4.00-11.30)
[2018-12-03 04:13] LABS: Anion Gap 6 mmol/L (6-16); Blood Urea Nitrogen 15 mg/dL (8-24); Bun/Creatinine Ratio 18.6 (12.0-20.0); CO2, Blood 30 mmol/L (21-32); Calcium, Blood 9.3 mg/dL (8.5-10.1); Chloride, Blood 102 mmol/L (98-108); Creatinine, Blood 0.81 mg/dL (0.40-1.00); Glomerular Filtration Rate >60 (60-); Glucose, Blood 121 mg/dL (70-99); Phosphorus, Blood 3.2 mg/dL (2.5-4.9); Potassium, Blood 3.6 mmol/L (3.5-5.5); Sodium, Blood 138 mmol/L (136-145)
--- NOTE | 2018-12-03 07:20 | NUR ---
SHIFT SUMMARY: RESTS QUIETLY WHEN UNDISTURBED LUNGS DECREASED THROUGHOUT. RESPIRATIONS REGULAR AND EASY SPO2 95% GROSS MOTOR MOVEMENTS OF UPPER EXTREMITIES. NEEDS ASSIT WITH DRINKING EATING. NO FURTHER NAUSEA OR EMESIS SINCE EARLIER EPISODE. SUPRA PUBIC CATH INTACT DRAINING LIGHT KELLEY URINE. NYSTATIN APPLIED TO MARIAELENA RECTAL AND PANNUS SITES. CONTINUE TO MONITOR AND REPORT CHANGE IN PATIENT CONDITION
--- NOTE | 2018-12-03 08:27 | NUR ---
Recieved report from Nena RN.Patient awake in bed and is able to communicate her needs. Dr Baker in room and asked that telemetry is removed and she is still awaiting medical bed. She tolerated breakfast with help of PCT. She tolerated am meds one at a tome with juice. She has rolled implements in hands to help with contractures. Patient on RA and sats mid 90%'s. She has 22 ga IV RH dressing intact and site WNL's and is flushed and SL. She has supra pubic cath hooked up to catheter bag draining to gravity clear yellow urine. She has mediport to RU chest infusing LR at TKO. She is Sr with BBBrate in ruben 90's. She has mepelex dressings to bilateral heels. She is awaiting to come in and PCT called and left message.
--- NOTE | 2018-12-03 12:30 | NUR ---
Patient awakening from nap and is very drowsy and at her side and setting her up for lunch as he likes to feed her. VSS. She remains on LR TKO and intermitent ABx. She still remains very weak and needs to be pushed to reposition and move.
--- NOTE | 2018-12-04 06:45 | NUR ---
SHIFT SUMMARY PT HAS REMAINED AOX4 THROUGHOUT SHIFT. VSS. PLEASANT AND COOPERATIVE WITH CARE. PT REMAINS AT BASELINE FUNCTION AND IS COMPLETELY RELIANT ON STAFF FOR CARE DUE TO QUADRIPLEGIA, BUT IS ABLE TO COMMUNICATE NEEDS. SUPRAPUBIC CATHETER HAS REMAINED PATENT AND DRAINING TO GRAVITY THROUGHOUT SHIFT- SOME LEAKING AROUND SP NOTED, SKIN CARE PROVIDED AND BLUE CHUX PLACED IN ABDOMINAL FOLDS TO KEEP AREA DRY AND PREVENT BREAKDOWN. PT MEDICATED FOR PAIN ONCE THROUGHOUT THE NIGHT AND MULTIPLE TIMES FOR LEG MUSCLE SPASMS THAT DECREASE WITH ORDERED MEDICATIONS. NO OTHER CHANGES NOTED FROM INITIAL ASSESSMENT. WILL CONTINUE TO MONITOR AND REPORT TO ONCOMING SHIFT RN. BED IN LOW POSITION, SOFT TOUCH CALL LIGHT UNDER R HAND.
--- NOTE | 2018-12-04 07:45 | NUR ---
PCU DAYSHIFT ASSUMED CARE OF PT APPROX 0700. PT ALERT AND ORIENTED TO SELF, SITUATION, PLACE AND FOLLOWS DIRECTIONS. SLIGHT CONFUSION PT THOUGHT WAS HIDING UNDERNEATH BED. PT VITAL SIGNS STABLE. ASSESSMENT COMPLETED. WEAKNESS AND ABSENT MOTION NOTED IN EXTREMITIES, NOTED IN ASSESSMENT. PT HAS SUPRAPUBIC CATHERTIC. IN PLACE, PATENT AND DRAINING. PT IS SLOW TO RESPOND BUT ABLE TO RESOND TO ALL QUESTIONS APPROPRIATELY. PT ABLE TO SIT UP AND HAVE BREAKFAST WITH STAFF ASSIST. BED IN LOW POSITION, CALL LIGHT IN REACH AND PT DENIES ANY NEEDS. WILL CONTINUE TO MONITOR.
[2018-12-04 09:22] LABS: Vancomycin, Trough 17.6 ug/mL (5.0-10.0)
--- NOTE | 2018-12-04 12:22 | NUR ---
NOTE RECIEVED NEW ROOM ASSIGNMENT. GAVE REPORT TO RECIEVING RN. PT TO BE ESCORTS BY PEER STAFF VIA BED TO NEW ROOM. NO S/SX OF ACUTE DISTRESS. WILL CONTINUE TO MONITOR UNTIL PT DEPARTS UNIT.
[2018-12-04] MEDS ORDERED: ALBU2.5V5 INH (17:08)
[2018-12-04] MEDS ORDERED: Depo-Prove150 MG/11 IM (17:09)
[2018-12-04] MEDS ORDERED: Nystop60 GM TOP (17:10)
--- NOTE | 2018-12-04 17:14 | NUR ---
PT AOX3 AND COOPERATIVE OF CARE.PT VERBALIZES HER NEEDS. MALLORY IN WORKING WELL AND PT IS TURNED Q2 HRS OR IF SHE REQUEST CHANGE IN POSITION. PT HAS AT BEDSIDE. NO DISTRESS NOTED WILL CONTINUE TO MONITOR.
--- NOTE | 2018-12-05 05:02 | NUR ---
HAMMER ADJUSTER SUMMARY NO ACUTE CHANGES THIS SHIFT. PT AAOX3 WITH SOME INTERMITTENT CONFUSION NOTED. PT IS VERY SOFT SPOKEN BUT CAN MAKE HER NEEDS KNOWN. SUPRAPUBIC CATHETER PATENT AND DRAINING. ASSISTED PT WITH FREQUENT REPOSITIONING ALLOWED BY PT. VSS, WILL CONTINUE TO MONITOR.
[2018-12-05] MEDS ORDERED: Rocephin 1g1 G/50 ML IV (14:23)
--- NOTE | 2018-12-05 17:12 | NUR ---
SHIFT SUMMARY: PT IS A/O X SELF AND SITUATION THIS SHIFT AND IS ABLE TO ANSWER QUESTIONS ALTHOUGH VERY SLOW TO RESPOND AND HAS A QUIET VOICE. SHE WAS ASSISTED WITH MEALS AND TOOK MEDS WITH APPLESAUCE PER HER REQUEST. SUPRA PUBIC CATHATER IS INTACT AND PATENT WITH CLEAR YELLOW URINE OUTPUT. NYSTATIN APPLIED TO FOLDS ORDERED. MEDIPORT REMAINS ACCESSED WITH FLUIDS RUNNING KVO ORDERED. HAS BEEN AT BEDSIDE MOST OF SHIFT AND IS AN ADVOCATE FOR HIS WIFES CARE.
--- NOTE | 2018-12-06 07:15 | NUR ---
a+o but soft and slow spoken, uses call light appropriatly, bsr provided to returning day shift nurse, saline locked, room air, turns q2 no major change in condition noted during shift.
--- NOTE | 2018-12-06 16:12 | NUR ---
SHIFT SUMMARY: PT HAS BEEN A/O AT BASELINE THIS SHIFT WITH C/O PAIN X 1 THAT PT REPORTS WAS WAS EFFECTIVE. PT CONTINUES TO NEED TOTAL CARE FOR TOILETING AND ADLS. DURING TOILETING THERE WAS REDNESS TO BUTTOCK/COCCYX NOTED AND STATED THAT THIS WAS HER BASELINE. PT CONTINUES TO BE REPOSITIONED Q 2. DC ORDERS RECEIVED AND PER REQUEST PT WILL RECIEVE HER DOSE OF IV ABO BEFORING LEAVING THIS ITA SO SHE DOES NOT MISS A DOSE. MEDIPORT REMAINS ACCESSED WITH IV FLUIDS RUNNING ORDERED. SUPRA PUBIC CATHETER WAS LEAKING AND IT WAS FLUSHED WITH ORDERED SOLUTION AND IT HAS RESOLVED. IS AT BEDSIDE AND CONTINUES TO ADVOCATE FOR PT.
--- NOTE | 2018-12-06 21:27 | NUR ---
ADMINISTERED ANTIBIOTIC EARLY CALL TO PHARMACY AT APPROXIMATELY 1910 AND SPOKE TO DA. CALLED REGARDING PATIENTS 2100 DOSE OF MAXIPIME. PT SCHEDULED TO DISCHARGE FOLLOWING ADMINISTRATION OF THIS DOSE OF ANTIBIOTIC. CALL TO PHARMACY TO INQUIRE IF ADMINISTERING THIS DOSE EARLY WOULD CAUSE ADVERSE EFFECTS. DA FROM PHARMACY STATED THAT IT WOULD BE OKAY TO ADMINISTER 2100 DOSE EARLY SO THAT PT COULD DISCHARGE.
== END 2018-12-06 21:35 | disposition home or self-care (01) | DRG 698 ==
LOC: ER 10:55 → PCU 13:20 → MEDS 12-04 12:56 → EDPENDDIS 12-06 12:32 → ENPENDDIS 12-06 12:32 → MEDS 12-06 21:35
PROVIDERS: Emergency Medicine; Family Medicine; ADMIT Internal Medicine
DX: T83.511A Infection and inflammatory reaction due to indwelling urethral catheter, initial encounter (principal); A41.9 Sepsis, unspecified organism; R65.20 Severe sepsis without septic shock; G82.50 Quadriplegia, unspecified; N39.0 Urinary tract infection, site not specified; B96.5 Pseudomonas (aeruginosa) (mallei) (pseudomallei) as the cause of diseases classified elsewhere; B95.61 Methicillin susceptible Staphylococcus aureus infection as the cause of diseases classified elsewhere; G35 Multiple sclerosis; E11.9 Type 2 diabetes mellitus without complications; I10 Essential (primary) hypertension; E66.01 Morbid (severe) obesity due to excess calories; F32.9 Major depressive disorder, single episode, unspecified; E78.5 Hyperlipidemia, unspecified; G25.81 Restless legs syndrome; E87.6 Hypokalemia; Z79.4 Long term (current) use of insulin; Z79.899 Other long term (current) drug therapy; Z88.8 Allergy status to other drugs, medicaments and biological substances
CPT/HCPCS: 36415; 71046; 76770; 80048; 80053; 80069; 80202; 81001; 82947; 83605; 85025; 85610; 85730; 87040; 87070; 87077; 87081; 87086; 87147; 87186; 93005; 93010; 93306; 96365; 99285-25; J0692; J1642; J1650; J1815; J2405; J3370; J7050; J7120

== ENCOUNTER 2019-02-14 12:19 | Emergency (ER) | payer OTHER ==
[~2019-02-14] VITALS: Ht 167.6 cm; Wt 113.4 kg
[~2019-02-14 12:19] MED LIST changes: +ALBU2.5V5 INH; +ALLERCLEAR10 MG PO; +Depo-Prove150 MG/11 IM; +FISH OIL 1,2001 EACH PO; +MYRBETRIQ50 MG PO; +Novolog100 UNIT/1 SQ; +Nystop60 GM TOP; +Rocephin 1g1 G/50 ML IV
[2019-02-14 13:59] LABS: BASOPHILS ABSOLUTE AUTO 0.05 K/mm3 (0.00-0.23); BASOPHILS PERCENT AUTO 1 % (0-2); EOSINOPHILS ABSOLUTE AUTO 0.29 K/mm3 (0.00-0.68); EOSINOPHILS PERCENT AUTO 5 % (0-6); Hematocrit 43.9 % (33.0-51.0); Hemoglobin 13.6 g/dL (11.5-16.0); IMMATURE GRAN ABSOLUTE AUTO 0.01 K/mm3 (0.00-0.10); IMMATURE GRAN PERCENT AUTO 0 % (0-1); LYMPHOCYTES ABSOLUTE AUTO 1.05 K/mm3 (0.84-5.20); LYMPHOCYTES PERCENT AUTO 16 % (21-46); MONOCYTES ABSOLUTE AUTO 0.59 K/mm3 (0.16-1.47); MONOCYTES PERCENT AUTO 9 % (4-13); Mean Corpuscular HGB 28.1 pg (26.0-34.0); Mean Corpuscular Volume 91 fL (80-100); Mean Platelet Volume 10.5 fL (9.1-12.4); NEUTROPHILS ABSOLUTE AUTO 4.43 K/mm3 (1.96-9.15); NEUTROPHILS PERCENT AUTO 69 % (41-73); Platelet Count 207 K/mm3 (150-400); RDW Coefficient Variation 16.5 % (11.7-14.2); RDW Standard Deviation 55.4 fL (35.1-46.3); Red Blood Cell Count 4.84 M/mm3 (3.80-5.20); White Blood Cell Count 6.42 K/mm3 (4.00-11.30)
[2019-02-14 14:18] LABS: Alanine Aminotransfer (ALT/SGP 30 U/L (12-78); Albumin, Blood 2.9 g/dL (3.4-5.0); Albumin/Globulin Ratio 0.6 (0.8-1.8); Alk Phos 89 U/L (50-136); Anion Gap 6 mmol/L (6-16); Aspartate Aminotrans (AST/SGOT 27 U/L (12-37); Bilirubin, Total 0.5 mg/dL (0.1-1.0); Blood Urea Nitrogen 21 mg/dL (8-24); Bun/Creatinine Ratio 28.4 (12.0-20.0); CO2, Blood 28 mmol/L (21-32); Calcium, Blood 9.1 mg/dL (8.5-10.1); Chloride, Blood 105 mmol/L (98-108); Creatinine, Blood 0.74 mg/dL (0.40-1.00); Globulin, Blood 4.8 g/dL (2.2-4.0); Glomerular Filtration Rate >60 (60-); Glucose, Blood 241 mg/dL (70-99); Potassium, Blood 3.5 mmol/L (3.5-5.5); Sodium, Blood 139 mmol/L (136-145); Total Protein, Blood 7.7 g/dL (6.4-8.2)
[2019-02-14] MEDS ORDERED: LEVO750 PO (14:48)
== END 2019-02-14 15:06 | disposition home or self-care (01) ==
LOC: ER 12:19
PROVIDERS: Physician Assistant
DX: J90 Pleural effusion, not elsewhere classified (principal); Z88.1 Allergy status to other antibiotic agents; Z88.8 Allergy status to other drugs, medicaments and biological substances; Z79.899 Other long term (current) drug therapy; Z79.4 Long term (current) use of insulin; E11.9 Type 2 diabetes mellitus without complications; I10 Essential (primary) hypertension
CPT/HCPCS: 36415; 71045; 80053; 85025; 99283-25

== ENCOUNTER 2021-01-05 19:05 | Observation (INO) | payer OTHER ==
[~2021-01-05] VITALS: Ht 165.1 cm; Wt 81.7 kg
[~2021-01-05 19:05] MED LIST changes: +NOVOLOG FL100 UNIT/3 SC; -Novolog100 UNIT/1 SQ; +VITAMIN D31000 UNI1 PO
[2021-01-05 19:50] LABS: Source, Urine Catheter
[2021-01-05 19:53] LABS: BASOPHILS ABSOLUTE AUTO 0.06 K/mm3 (0.00-0.23); BASOPHILS PERCENT AUTO 1 % (0-2); EOSINOPHILS ABSOLUTE AUTO 0.35 K/mm3 (0.00-0.68); EOSINOPHILS PERCENT AUTO 4 % (0-6); Hematocrit 33.5 % (33.0-51.0); Hemoglobin 9.2 g/dL (11.5-16.0); IMMATURE GRAN ABSOLUTE AUTO 0.03 K/mm3 (0.00-0.10); IMMATURE GRAN PERCENT AUTO 0 % (0-1); LYMPHOCYTES ABSOLUTE AUTO 1.34 K/mm3 (0.84-5.20); LYMPHOCYTES PERCENT AUTO 16 % (21-46); MONOCYTES ABSOLUTE AUTO 0.99 K/mm3 (0.16-1.47); MONOCYTES PERCENT AUTO 12 % (4-13); Mean Corpuscular HGB 20.8 pg (26.0-34.0); Mean Corpuscular HGB Conc 27.5 g/dL (31.5-36.5); Mean Corpuscular Volume 76 fL (80-100); Mean Platelet Volume 10.4 fL (9.1-12.4); NEUTROPHILS ABSOLUTE AUTO 5.62 K/mm3 (1.96-9.15); NEUTROPHILS PERCENT AUTO 67 % (41-73); Platelet Count 277 K/mm3 (150-400); RDW Coefficient Variation 18.6 % (11.7-14.2); RDW Standard Deviation 50.4 fL (35.1-46.3); Red Blood Cell Count 4.43 M/mm3 (3.80-5.20); White Blood Cell Count 8.39 K/mm3 (4.00-11.30)
[2021-01-05 19:58] LABS: Appearance, Urine Cloudy (Clear); Bilirubin, Urine Neg (Neg); Blood, Urine 4+ (Neg); Color, Urine Amber (P-Yellow); Glucose Qualitative, Urine Neg (Neg); Ketones, Urine Neg (Neg); Leukocyte Esterase, Urine 3+ (Neg); Nitrite, Urine Pos (Neg); Protein, Urine 2+ (Neg); Specific Gravity, Urine 1.025 (1.003-1.022); Urobilinogen, Urine NORM (Normal)
[2021-01-05 20:05] LABS: Bacteria Many /hpf; Squamous Epithelial Cells Few /hpf (Few); White Blood Cells, Urine TNTC /hpf (0-5)
[2021-01-05 20:14] LABS: Alanine Aminotransfer (ALT/SGP 19 U/L (12-78); Albumin, Blood 2.7 g/dL (3.4-5.0); Albumin/Globulin Ratio 0.7 (0.8-1.8); Alk Phos 73 U/L (50-136); Anion Gap 5 mmol/L (6-16); Aspartate Aminotrans (AST/SGOT 16 U/L (12-37); Bilirubin, Total 0.5 mg/dL (0.1-1.0); Blood Urea Nitrogen 19 mg/dL (8-24); Bun/Creatinine Ratio 21.7 (12.0-20.0); CO2, Blood 34 mmol/L (21-32); Calcium, Blood 9.1 mg/dL (8.5-10.1); Chloride, Blood 102 mmol/L (98-108); Creatinine, Blood 0.88 mg/dL (0.40-1.00); Globulin, Blood 3.9 g/dL (2.2-4.0); Glomerular Filtration Rate >60 (60-); Glucose, Blood 193 mg/dL (70-99); Potassium, Blood 2.8 mmol/L (3.5-5.5); Sodium, Blood 141 mmol/L (136-145); Total Protein, Blood 6.6 g/dL (6.4-8.2)
[2021-01-06 05:03] LABS: BASOPHILS ABSOLUTE AUTO 0.03 K/mm3 (0.00-0.23); BASOPHILS PERCENT AUTO 0 % (0-2); EOSINOPHILS ABSOLUTE AUTO 0.38 K/mm3 (0.00-0.68); EOSINOPHILS PERCENT AUTO 5 % (0-6); Hematocrit 31.1 % (33.0-51.0); Hemoglobin 8.5 g/dL (11.5-16.0); IMMATURE GRAN ABSOLUTE AUTO 0.02 K/mm3 (0.00-0.10); IMMATURE GRAN PERCENT AUTO 0 % (0-1); LYMPHOCYTES ABSOLUTE AUTO 1.08 K/mm3 (0.84-5.20); LYMPHOCYTES PERCENT AUTO 15 % (21-46); MONOCYTES PERCENT AUTO 11 % (4-13); Mean Corpuscular HGB 20.7 pg (26.0-34.0); Mean Corpuscular HGB Conc 27.3 g/dL (31.5-36.5); Mean Corpuscular Volume 76 fL (80-100); Mean Platelet Volume 10.3 fL (9.1-12.4); NEUTROPHILS ABSOLUTE AUTO 5.16 K/mm3 (1.96-9.15); NEUTROPHILS PERCENT AUTO 69 % (41-73); Platelet Count 233 K/mm3 (150-400); RDW Coefficient Variation 18.4 % (11.7-14.2); RDW Standard Deviation 50.4 fL (35.1-46.3); Red Blood Cell Count 4.11 M/mm3 (3.80-5.20); White Blood Cell Count 7.47 K/mm3 (4.00-11.30)
[2021-01-06 05:24] LABS: Anion Gap 3 mmol/L (6-16); Blood Urea Nitrogen 16 mg/dL (8-24); CO2, Blood 34 mmol/L (21-32); Calcium, Blood 8.1 mg/dL (8.5-10.1); Chloride, Blood 105 mmol/L (98-108); Glomerular Filtration Rate >60 (60-); Glucose, Blood 144 mg/dL (70-99); Potassium, Blood 3.6 mmol/L (3.5-5.5); Sodium, Blood 142 mmol/L (136-145)
[2021-01-06] MEDS ORDERED: CYCL10 PO (11:48)
[2021-01-06] MEDS ORDERED: BACL20 PO (11:48)
[2021-01-06] MEDS ORDERED: KLOR-CON 1010 ME3 PO (11:48)
[2021-01-06] MEDS ORDERED: KLONOPIN0.5 M3 PO (11:48)
[2021-01-06] MEDS ORDERED: BASAGLAR K100 UNIT/3 (11:49)
[2021-01-06] MEDS ORDERED: DULOXETINE HCL60 M1 PO (11:49)
[2021-01-06] MEDS ORDERED: ROSUVASTATIN CA10 MG PO (11:49)
[2021-01-06] MEDS ORDERED: Mirapex1.5 MG PO (11:49)
[2021-01-06] MEDS ORDERED: LACT PO (12:29)
[2021-01-06] MEDS ORDERED: POTA10T PO (12:31)
== END 2021-01-06 13:32 | disposition home or self-care (01) ==
LOC: ER 19:05 → ERHOLD 19:06
PROVIDERS: Emergency Medicine; Family Medicine; ADMIT Internal Medicine
DX: R50.9 Fever, unspecified (principal); E87.6 Hypokalemia; E11.9 Type 2 diabetes mellitus without complications; I10 Essential (primary) hypertension; F17.200 Nicotine dependence, unspecified, uncomplicated; Z66 Do not resuscitate; Z88.1 Allergy status to other antibiotic agents; Z88.4 Allergy status to anesthetic agent; Z79.899 Other long term (current) drug therapy
CPT/HCPCS: 36415; 80048; 80053; 81001; 83735; 85025; 87086; 96365; 96366; 96372; 99285-25; A9270; G0378; J0696; J1650; J2543; J7030

== ENCOUNTER 2021-01-23 16:58 | Emergency (ER) | payer OTHER ==
[~2021-01-23] VITALS: Ht 165.1 cm; Wt 110.0 kg
[~2021-01-23 16:58] MED LIST changes: +BASAGLAR K100 UNIT/3; +CYCL10 PO; +DULOXETINE HCL60 M1 PO; +KLONOPIN0.5 M3 PO; +KLOR-CON 1010 ME3 PO; +LACT PO; +POTA10T PO; +ROSUVASTATIN CA10 MG PO
[2021-01-23 18:01] LABS: BASOPHILS ABSOLUTE AUTO 0.05 K/mm3 (0.00-0.23); BASOPHILS PERCENT AUTO 1 % (0-2); EOSINOPHILS ABSOLUTE AUTO 0.53 K/mm3 (0.00-0.68); EOSINOPHILS PERCENT AUTO 7 % (0-6); Hematocrit 34.2 % (33.0-51.0); Hemoglobin 9.4 g/dL (11.5-16.0); IMMATURE GRAN ABSOLUTE AUTO 0.01 K/mm3 (0.00-0.10); IMMATURE GRAN PERCENT AUTO 0 % (0-1); LYMPHOCYTES PERCENT AUTO 16 % (21-46); MONOCYTES ABSOLUTE AUTO 0.64 K/mm3 (0.16-1.47); MONOCYTES PERCENT AUTO 8 % (4-13); Mean Corpuscular HGB 20.3 pg (26.0-34.0); Mean Corpuscular HGB Conc 27.5 g/dL (31.5-36.5); Mean Corpuscular Volume 74 fL (80-100); NEUTROPHILS ABSOLUTE AUTO 5.52 K/mm3 (1.96-9.15); NEUTROPHILS PERCENT AUTO 69 % (41-73); Platelet Count 265 K/mm3 (150-400); RDW Coefficient Variation 19.3 % (11.7-14.2); RDW Standard Deviation 50.7 fL (35.1-46.3); Red Blood Cell Count 4.64 M/mm3 (3.80-5.20); White Blood Cell Count 8.05 K/mm3 (4.00-11.30)
[2021-01-23 18:25] LABS: Alanine Aminotransfer (ALT/SGP 20 U/L (12-78); Albumin, Blood 2.7 g/dL (3.4-5.0); Albumin/Globulin Ratio 0.7 (0.8-1.8); Alk Phos 77 U/L (50-136); Anion Gap 5 mmol/L (6-16); Aspartate Aminotrans (AST/SGOT 21 U/L (12-37); Bilirubin, Total 0.4 mg/dL (0.1-1.0); Blood Urea Nitrogen 17 mg/dL (8-24); Bun/Creatinine Ratio 21.7 (12.0-20.0); CO2, Blood 34 mmol/L (21-32); Calcium, Blood 9.1 mg/dL (8.5-10.1); Chloride, Blood 101 mmol/L (98-108); Creatinine, Blood 0.78 mg/dL (0.40-1.00); Globulin, Blood 3.8 g/dL (2.2-4.0); Glomerular Filtration Rate >60 (60-); Glucose, Blood 134 mg/dL (70-99); Potassium, Blood 3.6 mmol/L (3.5-5.5); Sodium, Blood 140 mmol/L (136-145); Total Protein, Blood 6.5 g/dL (6.4-8.2); Troponin I <0.015 ng/mL (0.000-0.040)
== END 2021-01-23 22:15 | disposition left against medical advice (07) ==
LOC: ER 16:58
PROVIDERS: Emergency Medicine Emergency Medical Services
DX: R60.0 Localized edema (principal); Z53.21 Procedure and treatment not carried out due to patient leaving prior to being seen by health care provider
CPT/HCPCS: 36415; 71045; 80053; 83880; 84484; 85025; 93005; 93010; 99284-25

== ENCOUNTER 2021-01-27 22:40 | Emergency (ER) | payer OTHER ==
[~2021-01-27] VITALS: Ht 165.1 cm; Wt 109.8 kg
[2021-01-28] MEDS ORDERED: MYRBETRIQ50 MG PO (00:04)
[2021-01-28] MEDS ORDERED: TIZA4 PO (00:04)
[2021-01-28] MEDS ORDERED: MODA200 PO (00:04)
[2021-01-28] MEDS ORDERED: FURO20 PO (00:05)
[2021-01-28] MEDS ORDERED: FISH OIL 1,2001 EAC1 PO (00:06)
== END 2021-01-28 01:36 | disposition home or self-care (01) ==
LOC: ER 22:40
DX: I87.2 Venous insufficiency (chronic) (peripheral) (principal); I10 Essential (primary) hypertension; Z88.1 Allergy status to other antibiotic agents; Z88.8 Allergy status to other drugs, medicaments and biological substances; Z79.899 Other long term (current) drug therapy; Z79.4 Long term (current) use of insulin
CPT/HCPCS: 93971; 99283-25

== ENCOUNTER 2021-05-21 10:28 | Inpatient (IN) | payer OTHER ==
[~2021-05-21] VITALS: Ht 165.1 cm; Wt 104.3 kg
[~2021-05-21 10:28] MED LIST changes: +FISH OIL 1,2001 EAC1 PO; +FURO20 PO; +MODA200 PO; +TIZA4 PO
[2021-05-21 10:59] LABS: Source, Urine Catheter
[2021-05-21 11:14] LABS: Appearance, Urine Clear (Clear); Bilirubin, Urine Neg (Neg); Blood, Urine 3+ (Neg); Color, Urine Yellow (P-Yellow); Glucose Qualitative, Urine Neg (Neg); Ketones, Urine Neg (Neg); Leukocyte Esterase, Urine 3+ (Neg); Nitrite, Urine Pos (Neg); Protein, Urine 2+ (Neg); Urobilinogen, Urine NORM (Normal)
[2021-05-21] MEDS ORDERED: DULO30 PO (11:26)
[2021-05-21 11:32] LABS: Amorphous Heavy (0-Heavy); Bacteria Many /hpf; Red Blood Cells, Urine 25-50 /hpf (0-2); Squamous Epithelial Cells Few /hpf (Few); White Blood Cells, Urine 25-50 /hpf (0-5)
[2021-05-21 11:33] LABS: Calcium Oxalate Crystals Rare /hpf
[2021-05-21 11:35] LABS: International Normalized Ratio 1.1; Prothrombin Time Results 11.5 Sec (9.7-11.5)
[2021-05-21 11:37] LABS: BASOPHILS ABSOLUTE AUTO 0.02 K/mm3 (0.00-0.23); BASOPHILS PERCENT AUTO 0 % (0-2); EOSINOPHILS ABSOLUTE AUTO 0.09 K/mm3 (0.00-0.68); EOSINOPHILS PERCENT AUTO 1 % (0-6); IMMATURE GRAN ABSOLUTE AUTO 0.07 K/mm3 (0.00-0.10); IMMATURE GRAN PERCENT AUTO 1 % (0-1); LYMPHOCYTES ABSOLUTE AUTO 0.93 K/mm3 (0.84-5.20); LYMPHOCYTES PERCENT AUTO 14 % (21-46); MONOCYTES ABSOLUTE AUTO 0.56 K/mm3 (0.16-1.47); MONOCYTES PERCENT AUTO 8 % (4-13); Mean Corpuscular HGB 16.3 pg (26.0-34.0); Mean Corpuscular HGB Conc 24.1 g/dL (31.5-36.5); Mean Corpuscular Volume 68 fL (80-100); NEUTROPHILS ABSOLUTE AUTO 4.99 K/mm3 (1.96-9.15); NEUTROPHILS PERCENT AUTO 75 % (41-73); NRBC ABSOLUTE 0.03 K/mm3 (0.00-0.02); NRBC Auto 0.5 /100 WBC (0.0-0.2); RDW Coefficient Variation 21.4 % (11.7-14.2); RDW Standard Deviation 51.4 fL (35.1-46.3); Red Blood Cell Count 2.03 M/mm3 (3.80-5.20); White Blood Cell Count 6.66 K/mm3 (4.00-11.30)
[2021-05-21 11:40] LABS: Hemoglobin 3.3 g/dL (11.5-16.0)
[2021-05-21 11:41] LABS: Hematocrit 13.7 % (33.0-51.0)
[2021-05-21 11:49] LABS: Albumin, Blood 1.8 g/dL (3.4-5.0); Albumin/Globulin Ratio 0.5 (0.8-1.8); Bilirubin, Direct 0.2 mg/dL (0.0-0.3); Bilirubin, Indirect 0.3 mg/dL (0.1-0.7); Bilirubin, Total 0.5 mg/dL (0.1-1.0); Calcium, Blood 8.6 mg/dL (8.5-10.1); Creatinine, Blood 1.04 mg/dL (0.40-1.00); Globulin, Blood 3.6 g/dL (2.2-4.0); Potassium, Blood 3.2 mmol/L (3.5-5.5); Total Protein, Blood 5.4 g/dL (6.4-8.2)
[2021-05-21 11:51] LABS: Platelet Count 130 K/mm3 (150-400)
[2021-05-21 12:27] LABS: Base Excess Venous 10.1 mmol/L; Bicarbonate Venous 33.1 mmol/L (24.0-30.0); PCO2 Venous 45.8 mmHg (38-42); pH Blood Venous 7.47 (7.34-7.37)
[2021-05-21 18:53] LABS: Hemoglobin 8.3 g/dL (11.5-16.0)
[2021-05-22 04:48] LABS: BASOPHILS ABSOLUTE AUTO 0.07 K/mm3 (0.00-0.23); BASOPHILS PERCENT AUTO 1 % (0-2); EOSINOPHILS ABSOLUTE AUTO 0.04 K/mm3 (0.00-0.68); EOSINOPHILS PERCENT AUTO 0 % (0-6); Hematocrit 24.8 % (33.0-51.0); Hemoglobin 7.5 g/dL (11.5-16.0); IMMATURE GRAN ABSOLUTE AUTO 0.05 K/mm3 (0.00-0.10); IMMATURE GRAN PERCENT AUTO 1 % (0-1); LYMPHOCYTES ABSOLUTE AUTO 0.58 K/mm3 (0.84-5.20); LYMPHOCYTES PERCENT AUTO 6 % (21-46); MONOCYTES ABSOLUTE AUTO 0.74 K/mm3 (0.16-1.47); MONOCYTES PERCENT AUTO 7 % (4-13); Mean Corpuscular HGB 22.2 pg (26.0-34.0); Mean Corpuscular HGB Conc 30.2 g/dL (31.5-36.5); NEUTROPHILS ABSOLUTE AUTO 8.67 K/mm3 (1.96-9.15); NEUTROPHILS PERCENT AUTO 85 % (41-73); NRBC ABSOLUTE 0.07 K/mm3 (0.00-0.02); NRBC Auto 0.7 /100 WBC (0.0-0.2); Platelet Count 113 K/mm3 (150-400); RDW Coefficient Variation 21.2 % (11.7-14.2); RDW Standard Deviation 56.8 fL (35.1-46.3); Red Blood Cell Count 3.38 M/mm3 (3.80-5.20); White Blood Cell Count 10.15 K/mm3 (4.00-11.30)
[2021-05-22 05:00] LABS: Mean Corpuscular Volume 73 fL (80-100)
--- NOTE | 2021-05-22 05:05 | NUR ---
SHIFT SUMMARY LENORE: LENORE IS QUADRIPLEGIC AND IS ON BED REST, SHE WAS TURNED Q2 LAST NIGHT. BLOOD WAS ADMINISTERED IN THE ER SHE WENT FROM HGB 3.3 TO 8.3 AND 7.3 NOW THIS AM. HER VITALS REMAINED STABLE THROUGHOUT THE SHIFT. SHE IS NOW ON CONTINUOUS NS, THE FLUID DID NOT SEEM TO AFFECT HER HGB THIS AM. SHE WAS 8.3 ON ADMISSION TO THE [facility] FLOOR AND IS NOW 7.3 THIS MORNING. CONTINUE TO MONITOR.
[2021-05-22 05:47] LABS: Albumin/Globulin Ratio 0.6 (0.8-1.8); Bilirubin, Total 1.1 mg/dL (0.1-1.0); Bun/Creatinine Ratio 19.6 (12.0-20.0); Calcium, Blood 8.6 mg/dL (8.5-10.1); Creatinine, Blood 0.97 mg/dL (0.40-1.00); Globulin, Blood 3.3 g/dL (2.2-4.0); Total Protein, Blood 5.3 g/dL (6.4-8.2)
[2021-05-22 15:12] LABS: Hematocrit 29.1 % (33.0-51.0); Hemoglobin 8.4 g/dL (11.5-16.0)
--- NOTE | 2021-05-22 19:45 | NUR ---
P[T IS ALERT ORIENTED TO SELF, FAMILY, AND PLACE. THE PT IS QUARAPLEGIC AND BEDBOUND AT THIS TIME, THE PT WAS REPOSITIONED T/O THE DAY. THE PTS COCCYX WOUND WAS PICTURES TAKEN, THE PT TOLERATED IT WELL. THIS AFTERNOON THE PT O2 SAT'S WERE AT 70% , OXYGEN WAS APPLIED AT 3L/MIN TPS O2 SAT'S CAME UP TO 93% QUIKLY. THE PT WAS MEDICATED FOR N/V X1 TODAY. CALL LIGHT IN REACH, REPORT GIVEN TO NOC NURSE
--- NOTE | 2021-05-23 03:18 | NUR ---
SHIFT SUMMARY LENORE: INSOMNIA, SOFT BP LENORE REMAINED STABLE ALL NIGHT ON 3 L. HER SPO2 WITHOUT THE 3L NC ARE IN THE 80'S. SHE STAYED UP ALL NIGHT, DENIED PAIN IN THE MORNING. KEPT ASKING FOR PEPSI, SHE HAD ONE GLASS. HER SBP THIS AM WAS 108, IT WAS 97 LAST NIGHT. WILL CONTINUE TO MONITOR.
[2021-05-23 05:06] LABS: BASOPHILS ABSOLUTE AUTO 0.05 K/mm3 (0.00-0.23); BASOPHILS PERCENT AUTO 1 % (0-2); EOSINOPHILS ABSOLUTE AUTO 0.13 K/mm3 (0.00-0.68); EOSINOPHILS PERCENT AUTO 1 % (0-6); Hematocrit 26.7 % (33.0-51.0); Hemoglobin 7.6 g/dL (11.5-16.0); IMMATURE GRAN ABSOLUTE AUTO 0.05 K/mm3 (0.00-0.10); IMMATURE GRAN PERCENT AUTO 1 % (0-1); LYMPHOCYTES ABSOLUTE AUTO 0.68 K/mm3 (0.84-5.20); LYMPHOCYTES PERCENT AUTO 8 % (21-46); MONOCYTES ABSOLUTE AUTO 0.83 K/mm3 (0.16-1.47); MONOCYTES PERCENT AUTO 9 % (4-13); Mean Corpuscular HGB 22.2 pg (26.0-34.0); Mean Corpuscular HGB Conc 28.5 g/dL (31.5-36.5); NEUTROPHILS PERCENT AUTO 81 % (41-73); NRBC ABSOLUTE 0.02 K/mm3 (0.00-0.02); NRBC Auto 0.2 /100 WBC (0.0-0.2); Platelet Count 96 K/mm3 (150-400); RDW Standard Deviation 62.3 fL (35.1-46.3); Red Blood Cell Count 3.43 M/mm3 (3.80-5.20); White Blood Cell Count 9.04 K/mm3 (4.00-11.30)
[2021-05-23 05:23] LABS: Mean Corpuscular Volume 78 fL (80-100)
[2021-05-23 06:17] LABS: Bun/Creatinine Ratio 17.4 (12.0-20.0); Calcium, Blood 8.5 mg/dL (8.5-10.1); Creatinine, Blood 0.98 mg/dL (0.40-1.00); Potassium, Blood 3.5 mmol/L (3.5-5.5)
[2021-05-23 14:10] LABS: Hematocrit 28.1 % (33.0-51.0); Hemoglobin 7.8 g/dL (11.5-16.0)
--- NOTE | 2021-05-23 19:14 | NUR ---
SHIFT SUMMARY PATIENT IS ALERT AND ORIENTED X2-SELF/ FAMILY. PLEASANT AND COOPERATIVE WITH CARE. MEPILIX APPLIED TO COCCYX THIS SHIFT. PATIENT RECEIVED INSULIN FOR COVERAGE PER SLIDING SCALE THIS SHIFT. THE PATIENT WAS HALLUCINATING SOME THIS SHIFT. THIS NURSE GAVE THE PATINT ZOFRAN FOR NAUSEA ONCE THIS SHIFT. PATIENT CURRENTLY HAS SPOUSE AT BEDSIDE. CALL LIGHT WITHIN REACH. PATIENT MAY POSSIBLY DC HOME TOMORROW. SHIFT REPORT GIVEN TO ONCOMING NURSE NAHOMY.
[2021-05-24 04:44] LABS: BASOPHILS ABSOLUTE AUTO 0.05 K/mm3 (0.00-0.23); BASOPHILS PERCENT AUTO 1 % (0-2); EOSINOPHILS ABSOLUTE AUTO 0.36 K/mm3 (0.00-0.68); EOSINOPHILS PERCENT AUTO 4 % (0-6); Hemoglobin 7.3 g/dL (11.5-16.0); IMMATURE GRAN ABSOLUTE AUTO 0.06 K/mm3 (0.00-0.10); IMMATURE GRAN PERCENT AUTO 1 % (0-1); LYMPHOCYTES ABSOLUTE AUTO 0.85 K/mm3 (0.84-5.20); LYMPHOCYTES PERCENT AUTO 9 % (21-46); MONOCYTES ABSOLUTE AUTO 0.82 K/mm3 (0.16-1.47); MONOCYTES PERCENT AUTO 9 % (4-13); Mean Corpuscular HGB 22.5 pg (26.0-34.0); Mean Corpuscular HGB Conc 28.1 g/dL (31.5-36.5); Mean Corpuscular Volume 80 fL (80-100); NEUTROPHILS ABSOLUTE AUTO 7.42 K/mm3 (1.96-9.15); NEUTROPHILS PERCENT AUTO 78 % (41-73); NRBC ABSOLUTE 0.08 K/mm3 (0.00-0.02); NRBC Auto 0.8 /100 WBC (0.0-0.2); RDW Coefficient Variation 23.3 % (11.7-14.2); RDW Standard Deviation 65.9 fL (35.1-46.3); Red Blood Cell Count 3.25 M/mm3 (3.80-5.20); White Blood Cell Count 9.56 K/mm3 (4.00-11.30)
--- NOTE | 2021-05-24 04:48 | NUR ---
SHIFT SUMMARY: LENORE VITALS REMAINED STABLE. SLEPT MOST OF THE NIGHT, HAD A SMALL BOWEL MOVEMENT. LOC STILL A0X2.
[2021-05-24 04:56] LABS: Mean Platelet Volume 10.6 fL (9.1-12.4); Platelet Count 100 K/mm3 (150-400)
[2021-05-24 05:30] LABS: Anion Gap 4 mmol/L (6-16); Blood Urea Nitrogen 12 mg/dL (8-24); CO2, Blood 31 mmol/L (21-32); Calcium, Blood 8.3 mg/dL (8.5-10.1); Chloride, Blood 107 mmol/L (98-108); Creatinine, Blood 0.86 mg/dL (0.40-1.00); Glomerular Filtration Rate >60 (60-); Glucose, Blood 108 mg/dL (70-99); Potassium, Blood 3.4 mmol/L (3.5-5.5); Sodium, Blood 142 mmol/L (136-145)
[2021-05-24 09:44] LABS: Stool Occult Blood Guaiac 1 Pos (Neg)
[2021-05-24] MEDS ORDERED: DOCU100 PO (10:32)
[2021-05-24] MEDS ORDERED: SENN187 PO (10:33)
[2021-05-24] MEDS ORDERED: LACT10SY PO (10:33)
[2021-05-24] MEDS ORDERED: ASCO500 PO (10:34)
[2021-05-24] MEDS ORDERED: FERSU300 PO (10:35)
--- NOTE | 2021-05-24 14:18 | NUR ---
DISCHARGE NOTE. PATIENT WAS DISCHARGED HOME VIA WHEELCHAIR WITH SPOUSE/CAREGIVER AT 1400. CAREGIVER UNDERSTOOD INSTRUCTIONS GIVEN TO REGARDING MEDICATIONS AND FOLLOW UP CARE. PATIENT WAS SENT HOME WITH 2LPM OF PORTABLE O2.
--- NOTE | 2021-05-25 08:59 | NUR ---
Patient is a [facility] patient who was transferred to [facility] on 05/21/2021 due to weakness and confusion. Patient discharged- 05/24/2021 with resumption of home health orders. Gathered supporting documentation for resumption (face sheet, discharge order, med list, and H&P) and faxed to [facility] for review. No further interventions required. Rachel Cook Referral Liaison
== END 2021-05-24 13:59 | disposition home or self-care (01) | DRG 811 ==
LOC: ER 10:28 → ERHOLD 13:24 → MEDS 19:21
PROVIDERS: Internal Medicine; Nurse Practitioner Acute Care; Student in an Organized Health Care Education/Training Program; ADMIT Internal Medicine
PROC: 30233N1 Transfusion of Nonautologous Red Blood Cells into Peripheral Vein, Percutaneous Approach (ICD-10-PCS; principal; 2021-05-21)
DX: D50.8 Other iron deficiency anemias (principal); G82.50 Quadriplegia, unspecified; G92.8 Other toxic encephalopathy; J96.01 Acute respiratory failure with hypoxia; F11.20 Opioid dependence, uncomplicated; T83.510A Infection and inflammatory reaction due to cystostomy catheter, initial encounter; N39.0 Urinary tract infection, site not specified; C18.9 Malignant neoplasm of colon, unspecified; G35 Multiple sclerosis; N31.9 Neuromuscular dysfunction of bladder, unspecified; Z66 Do not resuscitate; F41.9 Anxiety disorder, unspecified; I10 Essential (primary) hypertension; G89.29 Other chronic pain; E11.9 Type 2 diabetes mellitus without complications; Z88.1 Allergy status to other antibiotic agents; Z88.4 Allergy status to anesthetic agent; Z90.710 Acquired absence of both cervix and uterus; Z98.890 Other specified postprocedural states; Z95.828 Presence of other vascular implants and grafts; Z87.442 Personal history of urinary calculi; Z74.01 Bed confinement status; Y84.6 Urinary catheterization as the cause of abnormal reaction of the patient, or of later complication, without mention of misadventure at the time of the procedure; L89.109 Pressure ulcer of unspecified part of back, unspecified stage
CPT/HCPCS: 36415; 36430; 51705; 70450; 71045; 80048; 80053; 80076; 81001; 82010; 82272; 82378; 82728; 82803; 82947; 83540; 83550; 83605; 83690; 83735; 84145; 85014; 85018; 85025; 85610; 85730; 86850; 86900; 86901; 86923; 87040; 87086; 90686; 93005; 93010; 94761; 96365-59; 96367-59; 96375-59; 99285-25; A9270; G0008; J0696; J1642; J1815; J2405; J2543; J2916; J3475; J7030; P9016

== ENCOUNTER 2021-07-17 00:59 | Day surgery (SDC) | payer OTHER ==
[~2021-07-17 00:59] MED LIST changes: +ASCO500 PO; +DOCU100 PO; +FERSU300 PO; +LACT10SY PO; +SENN187 PO
== END 2021-07-17 23:55 | disposition home or self-care (01) ==
LOC: WOUND 00:59
DX: L89.153 Pressure ulcer of sacral region, stage 3 (principal); L89.313 Pressure ulcer of right buttock, stage 3; L89.893 Pressure ulcer of other site, stage 3; L89.113 Pressure ulcer of right upper back, stage 3; L89.103 Pressure ulcer of unspecified part of back, stage 3
CPT/HCPCS: A9270

== ENCOUNTER 2021-07-24 01:19 | Day surgery (SDC) | payer OTHER | END 2021-07-24 22:51 | disposition home or self-care (01) | LOC: WOUND 01:19 | DX: L89.153 Pressure ulcer of sacral region, stage 3 (principal); L89.113 Pressure ulcer of right upper back, stage 3; L89.893 Pressure ulcer of other site, stage 3; L89.313 Pressure ulcer of right buttock, stage 3; L89.323 Pressure ulcer of left buttock, stage 3; L89.890 Pressure ulcer of other site, unstageable; E11.622 Type 2 diabetes mellitus with other skin ulcer; L97.822 Non-pressure chronic ulcer of other part of left lower leg with fat layer exposed; E11.621 Type 2 diabetes mellitus with foot ulcer; L97.529 Non-pressure chronic ulcer of other part of left foot with unspecified severity; G35 Multiple sclerosis | CPT/HCPCS: A9270 ==

== ENCOUNTER 2021-07-31 00:39 | Day surgery (SDC) | payer OTHER | END 2021-07-31 23:54 | disposition home or self-care (01) | LOC: WOUND 00:39 | DX: L89.153 Pressure ulcer of sacral region, stage 3 (principal); L89.314 Pressure ulcer of right buttock, stage 4; L89.143 Pressure ulcer of left lower back, stage 3; E11.622 Type 2 diabetes mellitus with other skin ulcer; E11.621 Type 2 diabetes mellitus with foot ulcer; L89.893 Pressure ulcer of other site, stage 3; L97.822 Non-pressure chronic ulcer of other part of left lower leg with fat layer exposed; L97.528 Non-pressure chronic ulcer of other part of left foot with other specified severity | CPT/HCPCS: A9270 ==

== ENCOUNTER → 2021-08-03 | Outpatient (CLI) | payer OTHER ==
[~2021-08-03] MED LIST changes: +AMOCLA875 PO; +ATOR20 PO; +Diflucan100 MG PO; +MODAFINIL100 M4 PO; +RENACIDIN IR; +TIZANIDINE HCL211 PO; +VISBIOME 112.51 EACH PO
== END | disposition home or self-care (01) ==
LOC: LAB HH 12:23
DX: L89.312 Pressure ulcer of right buttock, stage 2 (principal); L08.9 Local infection of the skin and subcutaneous tissue, unspecified; B95.62 Methicillin resistant Staphylococcus aureus infection as the cause of diseases classified elsewhere
CPT/HCPCS: 87070; 87075; 87205

== ENCOUNTER 2021-08-14 02:55 | Day surgery (SDC) | payer OTHER ==
[~2021-08-14 02:55] MED LIST changes: -AMOCLA875 PO; -ATOR20 PO; -Diflucan100 MG PO; -MODAFINIL100 M4 PO; -RENACIDIN IR; -TIZANIDINE HCL211 PO; -VISBIOME 112.51 EACH PO
[2021-08-26] MEDS ORDERED: HYDCHL25 (20:10)
== END 2021-08-14 22:59 | disposition home or self-care (01) ==
LOC: WOUND 02:55
DX: L89.104 Pressure ulcer of unspecified part of back, stage 4 (principal); L89.214 Pressure ulcer of right hip, stage 4; L89.224 Pressure ulcer of left hip, stage 4; L89.154 Pressure ulcer of sacral region, stage 4; L89.623 Pressure ulcer of left heel, stage 3; G35 Multiple sclerosis
CPT/HCPCS: A9270; G0463

== ENCOUNTER 2021-08-14 14:22 | Inpatient (IN) | payer OTHER ==
[~2021-08-14] VITALS: Ht 157.5 cm; Wt 78.7 kg
[2021-08-14 15:11] LABS: BASOPHILS ABSOLUTE AUTO 0.09 K/mm3 (0.00-0.23); BASOPHILS PERCENT AUTO 1 % (0-2); EOSINOPHILS ABSOLUTE AUTO 0.22 K/mm3 (0.00-0.68); EOSINOPHILS PERCENT AUTO 1 % (0-6); Hematocrit 40.1 % (33.0-51.0); Hemoglobin 12.3 g/dL (11.5-16.0); IMMATURE GRAN ABSOLUTE AUTO 0.09 K/mm3 (0.00-0.10); IMMATURE GRAN PERCENT AUTO 1 % (0-1); LYMPHOCYTES ABSOLUTE AUTO 0.76 K/mm3 (0.84-5.20); LYMPHOCYTES PERCENT AUTO 4 % (21-46); MONOCYTES ABSOLUTE AUTO 1.09 K/mm3 (0.16-1.47); MONOCYTES PERCENT AUTO 6 % (4-13); Mean Corpuscular HGB 27.6 pg (26.0-34.0); Mean Corpuscular HGB Conc 30.7 g/dL (31.5-36.5); Mean Corpuscular Volume 90 fL (80-100); Mean Platelet Volume 9.2 fL (9.1-12.4); NEUTROPHILS ABSOLUTE AUTO 15.14 K/mm3 (1.96-9.15); NEUTROPHILS PERCENT AUTO 87 % (41-73); Platelet Count 373 K/mm3 (150-400); RDW Coefficient Variation 14.6 % (11.7-14.2); RDW Standard Deviation 47.8 fL (35.1-46.3); Red Blood Cell Count 4.45 M/mm3 (3.80-5.20); White Blood Cell Count 17.39 K/mm3 (4.00-11.30)
[2021-08-14 15:37] LABS: Alanine Aminotransfer (ALT/SGP 18 U/L (12-78); Albumin, Blood 1.5 g/dL (3.4-5.0); Albumin/Globulin Ratio 0.4 (0.8-1.8); Alk Phos 230 U/L (50-136); Anion Gap 4 mmol/L (6-16); Aspartate Aminotrans (AST/SGOT 17 U/L (12-37); Bilirubin, Total 0.3 mg/dL (0.1-1.0); Blood Urea Nitrogen 20 mg/dL (8-24); Bun/Creatinine Ratio 31.4 (12.0-20.0); CO2, Blood 37 mmol/L (21-32); Calcium, Blood 8.9 mg/dL (8.5-10.1); Chloride, Blood 96 mmol/L (98-108); Creatinine, Blood 0.64 mg/dL (0.40-1.00); Globulin, Blood 4.1 g/dL (2.2-4.0); Glomerular Filtration Rate >60 (60-); Glucose, Blood 243 mg/dL (70-99); Potassium, Blood 3.1 mmol/L (3.5-5.5); Sodium, Blood 137 mmol/L (136-145); Total Protein, Blood 5.6 g/dL (6.4-8.2)
[2021-08-14 16:27] LABS: Influenza A, PCR NEGATIVE (NEGATIVE); Influenza B, PCR NEGATIVE (NEGATIVE); Resp Syncytial Virus, PCR NEGATIVE (NEGATIVE); SARS-Cov-2 (COVID-19) PCR, MMC NEGATIVE (NEGATIVE)
[2021-08-14 18:10] LABS: Source, Urine Suprapubic Cath
[2021-08-14 18:13] LABS: Bilirubin, Urine Neg (Neg); Blood, Urine 2+ (Neg); Glucose Qualitative, Urine Neg (Neg); Ketones, Urine Neg (Neg); Leukocyte Esterase, Urine 3+ (Neg); Nitrite, Urine Pos (Neg); Protein, Urine 2+ (Neg); Urobilinogen, Urine NORM (Normal)
[2021-08-14 18:20] LABS: Appearance, Urine Hazy (Clear); Color, Urine Pale Yellow (P-Yellow)
[2021-08-14 18:22] LABS: Bacteria Mod /hpf; Squamous Epithelial Cells Few /hpf (Few); Yeast/Fungi Urine Rare /hpf
[2021-08-14 18:23] LABS: Amorphous Light (0-Heavy); Mucus Light (0-Heavy)
--- NOTE | 2021-08-14 19:17 | NUR ---
SHIFT SUMMARY PATIENT ADMITTED FROM ER SHORTLY BEFORE SHIFT CHANGE. ADMITTED FOR DECUBITIS ULCERS WITH PLANS FOR DEBRIDEMENT OF WOUNDS. SACRUM AND HEELS. WHEEL CHAIR BOUND AT BASE LINE. RECEIVING WOUND CARE FROM WOUND CARE CLINIC. AT BEDSIDE. PATIENT DIFFICULT TO UNDERSTAND. POWERPORT ON RIGHT SUBCLAVIAN WITH NS RUNNING AT 50ML/HR. CHRONIC SUPRAPUBIC CATHETER PRESENT. MED REC COMPLETED WITH . ADMISSION ASSESSMENT STILL NEEDS TO BE COMPLETED. REPORT GIVEN TO ONCOMING NURSE AND THE STATUS OF WHAT HAS BEEN COMPLETED FOR ADMISSION.
--- NOTE | 2021-08-15 05:10 | NUR ---
SHIFT SUMMARY 71 YR F ADMITTED ON 08/14/21 FOR DECUITUS ULCERS. FULL CODE. PT HAS TWO SIGNIFICANTLY LARGE PRESSURE ULCERS TO LOWER BACK (SACRAL AREA), AND LEFT SCAPULA. THIS NURSE AND CHARGE NURSE THIS SHIFT TOOK PHOTOS OF WOUNDS AND ADDED TO PT RECORD. ATTEMPTED TO CLEAN WOUND AREA AND COVERED W/ MEPILEX, GAUZE, AND TAPE. THE WOUNDS ARE IN AWKWARD PLACES AND IT WAS DIFFICULT TO FULLY COVER AND SECURE THEM. PT IS NPO FOR BREAKFAST AND IS SCHEDULED FOR DEBRIDEMENT OF HER WOUNDS TODAY. 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 SHE HAS MS AND HAS NO USE OF HER ARMS AND LEGS. SHE IS ALSO HARD TO UNDERSTAND VERBALLY AND THE IS A GREAT RESOURCE FOR INFORMATION.
[2021-08-15 06:49] LABS: Anion Gap 5 mmol/L (6-16); Blood Urea Nitrogen 15 mg/dL (8-24); Bun/Creatinine Ratio 29.5 (12.0-20.0); CO2, Blood 36 mmol/L (21-32); Calcium, Blood 8.8 mg/dL (8.5-10.1); Chloride, Blood 97 mmol/L (98-108); Creatinine, Blood 0.51 mg/dL (0.40-1.00); Glomerular Filtration Rate >60 (60-); Glucose, Blood 145 mg/dL (70-99); Potassium, Blood 3.4 mmol/L (3.5-5.5); Sodium, Blood 138 mmol/L (136-145)
--- NOTE | 2021-08-15 14:01 | NUR ---
CALL FROM [employer]EWEL[employer] SALES COORDINATOR, PATIENT WILL HAVE SURGICAL PROCEDURE THIS AFTERNOON. RN WILL COME GET HER AFTER 2:30 PM TODAY. SPOUSE AND PAITNET ARE NOTIFIED BY THIS RN.
--- NOTE | 2021-08-15 19:10 | NUR ---
SHIFT SUMMARY; PATIENT RETURNED FROM PACU AT APPROX 1730. ORDERS RECEIVED FOR WOUND CARE OF ALGINATE AND ALLEVYN (MEPELEX) TO WOUNDS FOR WOUND CARE. PATIENT IS MUCH MORE ALERT THAN THIS AM. RELATES SHE IS NOT HAVING PAIN AT THIS TIME BUT IS VERY HUNGRY. REGULAR DIET TRAY ORDERED AND PATIENT ASKED THAT HER SPOUSE FEED HER. HER MEDIPORT IS ACCESSED FOR HER IV VANCO. SHE TAKES HER PO KCL WITHOUT DIFFICULTY WITH WATER. REPORT AND HAND OFF TO NOC SHIFT RN.
--- NOTE | 2021-08-16 03:15 | NUR ---
SHIFT SUMMARY 71 YR F ADMITTED ON 08/14/21 FOR DECUBITUS ULCERS. FULL CODE. ULCERS WERE DEBRIDED PRIOR TO THIS SHIFT AND PT SEEMS TO BE TOLERSTING WELL. PAIN MEDS GIVEN PER EMAR, BUT PT HAS NOT C/O PAIN (PT REQUESTED THAT WE STAY ON TOP OF PAIN CONTROL). . SHE HAS SLEPT THIS SHIFT AND HAS NOT BEEN CALLING OUT MUCH YESTERDAY. SHE APPEARS TO BE MORE COMFORTABLE THAN BEFORE THE DEBRIDEMENT. NO ACUTE CHANGES OVERNIGHT. WOUND DRESSINGS APPEAR DRY AND INTACT.
[2021-08-16 05:05] LABS: BASOPHILS ABSOLUTE AUTO 0.08 K/mm3 (0.00-0.23); BASOPHILS PERCENT AUTO 1 % (0-2); EOSINOPHILS ABSOLUTE AUTO 0.23 K/mm3 (0.00-0.68); EOSINOPHILS PERCENT AUTO 2 % (0-6); Hematocrit 36.5 % (33.0-51.0); Hemoglobin 11.3 g/dL (11.5-16.0); IMMATURE GRAN ABSOLUTE AUTO 0.04 K/mm3 (0.00-0.10); IMMATURE GRAN PERCENT AUTO 0 % (0-1); LYMPHOCYTES ABSOLUTE AUTO 0.83 K/mm3 (0.84-5.20); LYMPHOCYTES PERCENT AUTO 6 % (21-46); MONOCYTES ABSOLUTE AUTO 1.02 K/mm3 (0.16-1.47); MONOCYTES PERCENT AUTO 8 % (4-13); Mean Corpuscular HGB 27.4 pg (26.0-34.0); Mean Corpuscular Volume 89 fL (80-100); Mean Platelet Volume 9.6 fL (9.1-12.4); NEUTROPHILS ABSOLUTE AUTO 11.01 K/mm3 (1.96-9.15); NEUTROPHILS PERCENT AUTO 83 % (41-73); Platelet Count 379 K/mm3 (150-400); RDW Coefficient Variation 14.7 % (11.7-14.2); RDW Standard Deviation 47.6 fL (35.1-46.3); Red Blood Cell Count 4.12 M/mm3 (3.80-5.20); White Blood Cell Count 13.21 K/mm3 (4.00-11.30)
[2021-08-16 05:23] LABS: Anion Gap 3 mmol/L (6-16); Blood Urea Nitrogen 13 mg/dL (8-24); Bun/Creatinine Ratio 24.1 (12.0-20.0); CO2, Blood 36 mmol/L (21-32); Calcium, Blood 8.6 mg/dL (8.5-10.1); Chloride, Blood 100 mmol/L (98-108); Creatinine, Blood 0.54 mg/dL (0.40-1.00); Glomerular Filtration Rate >60 (60-); Glucose, Blood 146 mg/dL (70-99); Potassium, Blood 3.2 mmol/L (3.5-5.5); Sodium, Blood 139 mmol/L (136-145)
[2021-08-16 05:34] LABS: Vancomycin, Trough 16.2 ug/mL (5.0-10.0)
--- NOTE | 2021-08-16 10:38 | NUR ---
Spoke with Primary RN Suzette and discussed case. Pt and family may benefit from advanced care planning and goals of care discussion. Pt resting in bed and spouse Taurus at bedside. Engaged in therapeutic listening as Taurus reports being Pt's primary caregiver with the state paying him to provide care for Pt 40 hours a week. He reports having a volunteer that comes to give him assistance 2 1/2 hours once a week. Gently educated on disease process and the importance of routine conversations with PCP and Pt on goals and values as disease progresses. Discussed hospice as an option and educated on hospice philosophy. Answered questions and continued therapeutic listening. Taurus reports approximately 3 years ago hospice was recommended but at that time they were not ready to consider option. Taurus reports he will have further discussions with Pt to consider hospice. Discussed POLST on file and current code status being full code and not aligning with wishes on POLST. Pt and spouse report wishes are the same that are on the POLST. Pt wishes for DNR. No other concerns reported at this time. Provided Palliative Care contact information and instructed to call with any questions or concerns. Spoke with Dr Pineda and discussed case. Placed DNR order per V/O from Dr Pineda. Palliative Care will remain available.
[2021-08-16] MEDS ORDERED: OXYC5 PO ×2 (11:23)
[2021-08-16] MEDS ORDERED: VISBIOME 112.51 EACH PO ×2 (11:25)
[2021-08-16] MEDS ORDERED: AMOCLA875 PO ×2 (11:26)
--- NOTE | 2021-08-17 11:46 | NUR ---
Patient is a [facility] patient who was transferred to [facility] on 08/14/2021 due to decubitus ulcer stage 4. Patient discharged 08/16/2021 with resumption of home health orders. Gathered supporting documentation for resumption (face sheet, discharge order, med list, and H&P) and faxed to [facility] for review. No further interventions required. Rachel Cook Referral Liaison
[2021-08-26] MEDS ORDERED: HYDCHL25 (20:10)
== END 2021-08-16 13:59 | disposition home health service (06) | DRG 853 ==
LOC: ER 14:22 → MEDS 18:17
PROVIDERS: Emergency Medicine; Family Medicine; Surgery; ADMIT Hospitalist
PROC: 0JB90ZZ Excision of Buttock Subcutaneous Tissue and Fascia, Open Approach (ICD-10-PCS; 2021-08-15)
PROC: 0JB70ZZ Excision of Back Subcutaneous Tissue and Fascia, Open Approach (ICD-10-PCS; principal; 2021-08-15 15:00)
DX: A41.9 Sepsis, unspecified organism (principal); L89.124 Pressure ulcer of left upper back, stage 4; L89.324 Pressure ulcer of left buttock, stage 4; L89.314 Pressure ulcer of right buttock, stage 4; L89.154 Pressure ulcer of sacral region, stage 4; G82.50 Quadriplegia, unspecified; Z20.822 Contact with and (suspected) exposure to COVID-19; Z66 Do not resuscitate; G35 Multiple sclerosis; E87.6 Hypokalemia; E11.9 Type 2 diabetes mellitus without complications; D63.8 Anemia in other chronic diseases classified elsewhere; I10 Essential (primary) hypertension; E78.5 Hyperlipidemia, unspecified; Z90.710 Acquired absence of both cervix and uterus; Z98.890 Other specified postprocedural states; Z88.1 Allergy status to other antibiotic agents; Z79.4 Long term (current) use of insulin; Z88.8 Allergy status to other drugs, medicaments and biological substances; Z79.899 Other long term (current) drug therapy
CPT/HCPCS: 0241U; 36415; 71045; 72170; 80048; 80053; 80202; 81001; 82947; 83036; 83605; 85025; 85651; 85730; 86140; 87040; 87077; 87086; 87186; 96365; 96366; 99284-25; A9270; J2250; J2704; J3010; J3370; J7030; J7050; J7120

== ENCOUNTER 2021-08-18 13:07 | Emergency (ER) | payer OTHER ==
[~2021-08-18] VITALS: Ht 172.7 cm; Wt 73.7 kg
[~2021-08-18 13:07] MED LIST changes: +AMOCLA875 PO; +OXYC5 PO; +VISBIOME 112.51 EACH PO
== END 2021-08-18 13:37 | disposition home or self-care (01) ==
LOC: ER 13:07
DX: Z45.2 Encounter for adjustment and management of vascular access device (principal); Z88.1 Allergy status to other antibiotic agents; Z88.8 Allergy status to other drugs, medicaments and biological substances; Z79.4 Long term (current) use of insulin; Z79.899 Other long term (current) drug therapy; I10 Essential (primary) hypertension; Z87.442 Personal history of urinary calculi
CPT/HCPCS: 99282; J1642

== ENCOUNTER 2021-08-26 15:02 | Inpatient (IN) | payer OTHER, MEDICARE ==
[~2021-08-26] VITALS: Ht 167.6 cm; Wt 82.9 kg
[~2021-08-26 15:02] MED LIST changes: -CYCL10 PO; -OXYC5 PO
[2021-08-26 16:05] LABS: BASOPHILS ABSOLUTE AUTO 0.07 K/mm3 (0.00-0.23); BASOPHILS PERCENT AUTO 0 % (0-2); EOSINOPHILS ABSOLUTE AUTO 0.08 K/mm3 (0.00-0.68); EOSINOPHILS PERCENT AUTO 1 % (0-6); Hematocrit 38.1 % (33.0-51.0); Hemoglobin 11.8 g/dL (11.5-16.0); IMMATURE GRAN ABSOLUTE AUTO 0.08 K/mm3 (0.00-0.10); IMMATURE GRAN PERCENT AUTO 1 % (0-1); LYMPHOCYTES ABSOLUTE AUTO 0.91 K/mm3 (0.84-5.20); LYMPHOCYTES PERCENT AUTO 5 % (21-46); MONOCYTES ABSOLUTE AUTO 1.15 K/mm3 (0.16-1.47); MONOCYTES PERCENT AUTO 7 % (4-13); Mean Corpuscular Volume 87 fL (80-100); Mean Platelet Volume 9.7 fL (9.1-12.4); NEUTROPHILS ABSOLUTE AUTO 14.43 K/mm3 (1.96-9.15); NEUTROPHILS PERCENT AUTO 86 % (41-73); Platelet Count 418 K/mm3 (150-400); RDW Coefficient Variation 15.2 % (11.7-14.2); RDW Standard Deviation 48.3 fL (35.1-46.3); Red Blood Cell Count 4.37 M/mm3 (3.80-5.20); White Blood Cell Count 16.72 K/mm3 (4.00-11.30)
[2021-08-26 16:31] LABS: Alanine Aminotransfer (ALT/SGP 16 U/L (12-78); Albumin, Blood 1.4 g/dL (3.4-5.0); Albumin/Globulin Ratio 0.3 (0.8-1.8); Alk Phos 256 U/L (50-136); Anion Gap 7 mmol/L (6-16); Aspartate Aminotrans (AST/SGOT 24 U/L (12-37); Bilirubin, Total 0.4 mg/dL (0.1-1.0); Blood Urea Nitrogen 25 mg/dL (8-24); Bun/Creatinine Ratio 46.7 (12.0-20.0); CO2, Blood 34 mmol/L (21-32); Calcium, Blood 8.5 mg/dL (8.5-10.1); Chloride, Blood 93 mmol/L (98-108); Creatinine, Blood 0.54 mg/dL (0.40-1.00); Globulin, Blood 4.4 g/dL (2.2-4.0); Glomerular Filtration Rate >60 (60-); Glucose, Blood 265 mg/dL (70-99); Potassium, Blood 3.2 mmol/L (3.5-5.5); Sodium, Blood 134 mmol/L (136-145); Total Protein, Blood 5.8 g/dL (6.4-8.2)
[2021-08-26] MEDS ORDERED: MYRBETRIQ50 MG PO (20:10)
[2021-08-26] MEDS ORDERED: HYDCHL25 PO (20:10)
[2021-08-26] MEDS ORDERED: FURO20 PO (20:11)
[2021-08-26] MEDS ORDERED: POTA10T PO (20:12)
[2021-08-26] MEDS ORDERED: MODA200 PO (20:13)
[2021-08-27 05:24] LABS: BASOPHILS ABSOLUTE AUTO 0.08 K/mm3 (0.00-0.23); BASOPHILS PERCENT AUTO 1 % (0-2); EOSINOPHILS ABSOLUTE AUTO 0.14 K/mm3 (0.00-0.68); EOSINOPHILS PERCENT AUTO 1 % (0-6); Hematocrit 33.9 % (33.0-51.0); Hemoglobin 10.4 g/dL (11.5-16.0); IMMATURE GRAN ABSOLUTE AUTO 0.05 K/mm3 (0.00-0.10); IMMATURE GRAN PERCENT AUTO 0 % (0-1); LYMPHOCYTES ABSOLUTE AUTO 1.15 K/mm3 (0.84-5.20); LYMPHOCYTES PERCENT AUTO 10 % (21-46); MONOCYTES ABSOLUTE AUTO 1.27 K/mm3 (0.16-1.47); MONOCYTES PERCENT AUTO 11 % (4-13); Mean Corpuscular HGB 26.6 pg (26.0-34.0); Mean Corpuscular HGB Conc 30.7 g/dL (31.5-36.5); Mean Corpuscular Volume 87 fL (80-100); Mean Platelet Volume 9.6 fL (9.1-12.4); NEUTROPHILS ABSOLUTE AUTO 9.13 K/mm3 (1.96-9.15); NEUTROPHILS PERCENT AUTO 77 % (41-73); Platelet Count 368 K/mm3 (150-400); RDW Coefficient Variation 15.2 % (11.7-14.2); RDW Standard Deviation 47.9 fL (35.1-46.3); Red Blood Cell Count 3.91 M/mm3 (3.80-5.20); White Blood Cell Count 11.82 K/mm3 (4.00-11.30)
[2021-08-27 06:03] LABS: Anion Gap 9 mmol/L (6-16); Blood Urea Nitrogen 19 mg/dL (8-24); Bun/Creatinine Ratio 38.2 (12.0-20.0); CO2, Blood 32 mmol/L (21-32); Calcium, Blood 7.9 mg/dL (8.5-10.1); Chloride, Blood 94 mmol/L (98-108); Glomerular Filtration Rate >60 (60-); Glucose, Blood 187 mg/dL (70-99); Potassium, Blood 2.6 mmol/L (3.5-5.5); Sodium, Blood 135 mmol/L (136-145)
[2021-08-27 23:42] LABS: Influenza A, PCR NEGATIVE (NEGATIVE); Influenza B, PCR NEGATIVE (NEGATIVE); Resp Syncytial Virus, PCR NEGATIVE (NEGATIVE); SARS-Cov-2 (COVID-19) PCR, MMC NEGATIVE (NEGATIVE)
[2021-08-28 05:23] LABS: BASOPHILS ABSOLUTE AUTO 0.04 K/mm3 (0.00-0.23); BASOPHILS PERCENT AUTO 1 % (0-2); EOSINOPHILS ABSOLUTE AUTO 0.13 K/mm3 (0.00-0.68); EOSINOPHILS PERCENT AUTO 2 % (0-6); Hematocrit 29.5 % (33.0-51.0); Hemoglobin 9.1 g/dL (11.5-16.0); IMMATURE GRAN ABSOLUTE AUTO 0.04 K/mm3 (0.00-0.10); IMMATURE GRAN PERCENT AUTO 1 % (0-1); LYMPHOCYTES ABSOLUTE AUTO 1.02 K/mm3 (0.84-5.20); LYMPHOCYTES PERCENT AUTO 12 % (21-46); MONOCYTES ABSOLUTE AUTO 0.88 K/mm3 (0.16-1.47); MONOCYTES PERCENT AUTO 10 % (4-13); Mean Corpuscular HGB 27.1 pg (26.0-34.0); Mean Corpuscular HGB Conc 30.8 g/dL (31.5-36.5); Mean Corpuscular Volume 88 fL (80-100); Mean Platelet Volume 9.1 fL (9.1-12.4); NEUTROPHILS ABSOLUTE AUTO 6.73 K/mm3 (1.96-9.15); NEUTROPHILS PERCENT AUTO 76 % (41-73); Platelet Count 299 K/mm3 (150-400); RDW Coefficient Variation 15.3 % (11.7-14.2); Red Blood Cell Count 3.36 M/mm3 (3.80-5.20); White Blood Cell Count 8.84 K/mm3 (4.00-11.30)
[2021-08-28 07:13] LABS: Alanine Aminotransfer (ALT/SGP 19 U/L (12-78); Albumin, Blood 1.2 g/dL (3.4-5.0); Albumin/Globulin Ratio 0.4 (0.8-1.8); Alk Phos 163 U/L (50-136); Anion Gap 3 mmol/L (6-16); Aspartate Aminotrans (AST/SGOT 22 U/L (12-37); Bilirubin, Total 0.3 mg/dL (0.1-1.0); Blood Urea Nitrogen 12 mg/dL (8-24); Bun/Creatinine Ratio 22.1 (12.0-20.0); CO2, Blood 35 mmol/L (21-32); Calcium, Blood 7.6 mg/dL (8.5-10.1); Chloride, Blood 100 mmol/L (98-108); Creatinine, Blood 0.54 mg/dL (0.40-1.00); Globulin, Blood 3.3 g/dL (2.2-4.0); Glomerular Filtration Rate >60 (60-); Glucose, Blood 202 mg/dL (70-99); Potassium, Blood 3.5 mmol/L (3.5-5.5); Sodium, Blood 138 mmol/L (136-145); Total Protein, Blood 4.5 g/dL (6.4-8.2)
[2021-08-29 05:25] LABS: Hematocrit 29.7 % (33.0-51.0); Hemoglobin 9.1 g/dL (11.5-16.0); Mean Corpuscular HGB 27.7 pg (26.0-34.0); Mean Corpuscular HGB Conc 30.6 g/dL (31.5-36.5); Mean Corpuscular Volume 91 fL (80-100); Mean Platelet Volume 9.4 fL (9.1-12.4); Platelet Count 301 K/mm3 (150-400); RDW Coefficient Variation 15.2 % (11.7-14.2); RDW Standard Deviation 49.9 fL (35.1-46.3); Red Blood Cell Count 3.28 M/mm3 (3.80-5.20); White Blood Cell Count 6.75 K/mm3 (4.00-11.30)
[2021-08-29 06:03] LABS: Alanine Aminotransfer (ALT/SGP 13 U/L (12-78); Albumin, Blood 1.2 g/dL (3.4-5.0); Albumin/Globulin Ratio 0.4 (0.8-1.8); Alk Phos 170 U/L (50-136); Anion Gap 7 mmol/L (6-16); Aspartate Aminotrans (AST/SGOT 15 U/L (12-37); BAND PERCENT MAN 5 % (0-8); BASOPHILS PERCENT MAN 0 % (0-2); Bilirubin, Total 0.2 mg/dL (0.1-1.0); Blood Urea Nitrogen 14 mg/dL (8-24); Bun/Creatinine Ratio 30.1 (12.0-20.0); CO2, Blood 32 mmol/L (21-32); CPK Creatine Kinase 27 U/L (26-193); Calcium, Blood 7.4 mg/dL (8.5-10.1); Chloride, Blood 101 mmol/L (98-108); Creatinine, Blood 0.47 mg/dL (0.40-1.00); EOSINOPHILS PERCENT MAN 0 % (0-6); Globulin, Blood 3.3 g/dL (2.2-4.0); Glomerular Filtration Rate >60 (60-); Glucose, Blood 291 mg/dL (70-99); LYMPHOCYTES ABSOLUTE MAN 0.47 K/mm3 (0.84-5.20); LYMPHOCYTES PERCENT MAN 7 % (21-46); MONOCYTES ABSOLUTE MAN 0.13 K/mm3 (0.16-1.47); MONOCYTES PERCENT MAN 2 % (4-13); NEUTROPHILS ABSOLUTE MAN 6.14 K/mm3 (1.96-9.15); SEG NEUTROPHILS PERCENT MAN 86 % (41-73); Sodium, Blood 140 mmol/L (136-145); TOTAL CELLS COUNTED 100; Total Protein, Blood 4.5 g/dL (6.4-8.2)
[2021-09-02 15:43] LABS: Influenza A, PCR NEGATIVE (NEGATIVE); Influenza B, PCR NEGATIVE (NEGATIVE); Resp Syncytial Virus, PCR NEGATIVE (NEGATIVE); SARS-Cov-2 (COVID-19) PCR, MMC NEGATIVE (NEGATIVE)
== END 2021-09-02 17:47 | DRG 853 ==
LOC: ER 15:02 → MEDS 21:25
PROVIDERS: Family Medicine; Physician Assistant; Surgery; ADMIT Hospitalist
PROC: 0JB70ZZ Excision of Back Subcutaneous Tissue and Fascia, Open Approach (ICD-10-PCS; principal; 2021-08-28 15:00)
DX: A41.9 Sepsis, unspecified organism (principal); L89.153 Pressure ulcer of sacral region, stage 3; E87.1 Hypo-osmolality and hyponatremia; E87.6 Hypokalemia; Z20.822 Contact with and (suspected) exposure to COVID-19; Z66 Do not resuscitate; E11.9 Type 2 diabetes mellitus without complications; E78.5 Hyperlipidemia, unspecified; Z88.1 Allergy status to other antibiotic agents; Z88.8 Allergy status to other drugs, medicaments and biological substances; Z98.890 Other specified postprocedural states; Z90.710 Acquired absence of both cervix and uterus; Z78.9 Other specified health status; Z79.4 Long term (current) use of insulin; Z91.018 Allergy to other foods; T36.8X5A Adverse effect of other systemic antibiotics, initial encounter; L89.522 Pressure ulcer of left ankle, stage 2; L89.892 Pressure ulcer of other site, stage 2
CPT/HCPCS: 0241U; 36415; 72193; 80048; 80053; 82550; 82947; 84132; 85025; 87040; 87070; 87075; 87205; 96365; 96366; 96375; 99285-25; A9270; J0295; J0690; J0878; J1100; J1200; J1642; J1650; J1815; J2250; J2270; J2405; J2704; J3010; J3370; J3480; J7040; J7050; J7120; Q9967

== ENCOUNTER 2021-09-11 09:05 | Inpatient (IN) | payer OTHER ==
[~2021-09-11] VITALS: Ht 170.2 cm; Wt 83.3 kg
[2021-09-11 10:07] LABS: BASOPHILS ABSOLUTE AUTO 0.16 K/mm3 (0.00-0.23); BASOPHILS PERCENT AUTO 1 % (0-2); EOSINOPHILS ABSOLUTE AUTO 0.52 K/mm3 (0.00-0.68); EOSINOPHILS PERCENT AUTO 4 % (0-6); Hematocrit 31.8 % (33.0-51.0); Hemoglobin 9.5 g/dL (11.5-16.0); IMMATURE GRAN ABSOLUTE AUTO 0.08 K/mm3 (0.00-0.10); IMMATURE GRAN PERCENT AUTO 1 % (0-1); LYMPHOCYTES ABSOLUTE AUTO 1.54 K/mm3 (0.84-5.20); LYMPHOCYTES PERCENT AUTO 12 % (21-46); MONOCYTES ABSOLUTE AUTO 0.79 K/mm3 (0.16-1.47); MONOCYTES PERCENT AUTO 6 % (4-13); Mean Corpuscular HGB 27.1 pg (26.0-34.0); Mean Corpuscular HGB Conc 29.9 g/dL (31.5-36.5); Mean Corpuscular Volume 91 fL (80-100); Mean Platelet Volume 9.1 fL (9.1-12.4); NEUTROPHILS ABSOLUTE AUTO 10.32 K/mm3 (1.96-9.15); NEUTROPHILS PERCENT AUTO 77 % (41-73); Platelet Count 390 K/mm3 (150-400); RDW Coefficient Variation 18.2 % (11.7-14.2); RDW Standard Deviation 59.2 fL (35.1-46.3); Red Blood Cell Count 3.51 M/mm3 (3.80-5.20); White Blood Cell Count 13.41 K/mm3 (4.00-11.30)
[2021-09-11 10:25] LABS: International Normalized Ratio 1.14; Prothrombin Time Results 11.9 Sec (9.7-11.5)
[2021-09-11 10:30] LABS: Alanine Aminotransfer (ALT/SGP 26 U/L (12-78); Albumin, Blood 1.2 g/dL (3.4-5.0); Albumin/Globulin Ratio 0.3 (0.8-1.8); Alk Phos 367 U/L (50-136); Anion Gap 5 mmol/L (6-16); Aspartate Aminotrans (AST/SGOT 19 U/L (12-37); Bilirubin, Direct <0.1 mg/dL (0.0-0.3); Bilirubin, Indirect Unable to Calculate mg/dL (0.1-0.7); Bilirubin, Total 0.2 mg/dL (0.1-1.0); Blood Urea Nitrogen 28 mg/dL (8-24); Bun/Creatinine Ratio 56.3 (12.0-20.0); CO2, Blood 37 mmol/L (21-32); Calcium, Blood 8.5 mg/dL (8.5-10.1); Chloride, Blood 97 mmol/L (98-108); Globulin, Blood 3.9 g/dL (2.2-4.0); Glomerular Filtration Rate >60 (60-); Glucose, Blood 127 mg/dL (70-99); Magnesium, Blood 1.7 mg/dL (1.6-2.4); Phosphorus, Blood 3.7 mg/dL (2.5-4.9); Sodium, Blood 139 mmol/L (136-145); Total Protein, Blood 5.1 g/dL (6.4-8.2)
[2021-09-11] MEDS ORDERED: ATOR20 PO (11:09)
[2021-09-11] MEDS ORDERED: SENN187 PO (11:14)
[2021-09-11 11:33] LABS: Source, Urine Foley catheter
--- NOTE | 2021-09-11 11:35 | NUR ---
Received a Palliative Care consult for this patient today. Yasmeen has a history of MS with contractures, DM type 2 and is bedbound. She has a chronic sacral decubitus ulcer, as well as re-occuring sepsis. She was last discharged from [facility] on 09/02/21 for sepsis related to the same wound. She was discharged to [facility] with a wound vac, but according to her , the wound vac continued to malfunction, and had an allergic reaction to an antibiotic at [facility], and she was sent from back to [facility] ED this am for continued infection. Pt's Shaun states pt was on Home Health services for wound care prior to the last hospitalization, and both HHRN and pt's PCP have recommended hospice, but the patient has declined. The patient verbalizes she does want to seek treatment today. Her states he is open to hospice, but that the patient isn't "there yet", and he believes she would "stop fighting to live" and quickly decline if placed on hospice. I did have a conversation with the patient this morning, and she indicated she is getting tired of repeated hospitalizations, and she would like to be at home, but she isn't ready yet. Pt's most recent POLST is DNR with comfort measures, but she states she has changed her mind, and now wishes to be DNR with limited interventions.
[2021-09-11 11:36] LABS: Appearance, Urine Hazy (Clear); Bilirubin, Urine Neg (Neg); Blood, Urine 1+ (Neg); Color, Urine Yellow (P-Yellow); Glucose Qualitative, Urine Neg (Neg); Ketones, Urine Neg (Neg); Leukocyte Esterase, Urine 3+ (Neg); Nitrite, Urine Pos (Neg); Protein, Urine 1+ (Neg); Specific Gravity, Urine 1.015 (1.003-1.022); Urobilinogen, Urine NORM (Normal)
[2021-09-11 11:52] LABS: Amorphous Mod (0-Heavy); Bacteria Many /hpf; Squamous Epithelial Cells Mod /hpf (Few); White Blood Cells, Urine 25-50 /hpf (0-5)
--- NOTE | 2021-09-11 16:44 | NUR ---
Spiritual Care referral by Dr. Ann Pt. had just been transferred to her room on the Medical floor. Pt. displayed evidence of discomfort. Spouse is present and welcomes my visit. Pt. is awake but verbally non responsive so communication is assisted by . Family are very familiar with the hospital. With permission I prayed for Pt. and family. Excused myself as nursing staff was waiting to care for pt. Spouse verbalized gratitude for the spiritual care visit.
[2021-09-11] MEDS ORDERED: CYCL10 PO (19:32)
--- NOTE | 2021-09-11 21:40 | NUR ---
2125 - SEE VS. TEMP 101.8 CONTINUES AFTER TYLENOL GIVEN. [address] CURTIS - REVIEWED TYLENOL DOSING, ICE TO ARM PITS, COOL WASHCLOTH, TEMPERATURE TURNED DOWN IN ROOM, PT ONLY HAS SHEET IN PLACE. 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 REVIEWED WITH DR. CURTIS PT HAS MEDIPORT IV FLUIDS TKO. DR. CURTIS REVIEWED ANTIBIOTICS, KIDNEY FUNCTION AND REPORTED SHE WOULD PLACE ORDERS AND CONTACT PHARMACY. REVIEWED CURRENT VITAL SIGNS WITH DR. CURTIS ALSO.
--- NOTE | 2021-09-11 22:00 | NUR ---
ICE PACKS IN PLACE TO ARM PITS AT 2130. NEW ICE PACKS APPLIED TO [facility].
--- NOTE | 2021-09-11 22:45 | NUR ---
ICE PACKS REMOVED FROM [facility] AREA - PT COVERED UP WITH SHEET.
--- NOTE | 2021-09-11 22:48 | NUR ---
VSS - TEMP 99. NOW. PT DENIES REQUEST FOR PO FLUIDS.
[2021-09-12 05:19] LABS: BASOPHILS ABSOLUTE AUTO 0.12 K/mm3 (0.00-0.23); BASOPHILS PERCENT AUTO 1 % (0-2); EOSINOPHILS ABSOLUTE AUTO 0.23 K/mm3 (0.00-0.68); EOSINOPHILS PERCENT AUTO 2 % (0-6); Hematocrit 27.4 % (33.0-51.0); Hemoglobin 8.3 g/dL (11.5-16.0); IMMATURE GRAN ABSOLUTE AUTO 0.02 K/mm3 (0.00-0.10); IMMATURE GRAN PERCENT AUTO 0 % (0-1); LYMPHOCYTES PERCENT AUTO 15 % (21-46); MONOCYTES ABSOLUTE AUTO 0.86 K/mm3 (0.16-1.47); MONOCYTES PERCENT AUTO 9 % (4-13); Mean Corpuscular HGB 27.5 pg (26.0-34.0); Mean Corpuscular HGB Conc 30.3 g/dL (31.5-36.5); Mean Corpuscular Volume 91 fL (80-100); Mean Platelet Volume 9.4 fL (9.1-12.4); NEUTROPHILS ABSOLUTE AUTO 6.87 K/mm3 (1.96-9.15); NEUTROPHILS PERCENT AUTO 72 % (41-73); Platelet Count 371 K/mm3 (150-400); RDW Coefficient Variation 18.4 % (11.7-14.2); RDW Standard Deviation 59.3 fL (35.1-46.3); Red Blood Cell Count 3.02 M/mm3 (3.80-5.20)
[2021-09-12 05:57] LABS: Anion Gap 6 mmol/L (6-16); Blood Urea Nitrogen 21 mg/dL (8-24); Bun/Creatinine Ratio 43.6 (12.0-20.0); CO2, Blood 33 mmol/L (21-32); Chloride, Blood 100 mmol/L (98-108); Creatinine, Blood 0.48 mg/dL (0.40-1.00); Glomerular Filtration Rate >60 (60-); Glucose, Blood 138 mg/dL (70-99); Potassium, Blood 3.7 mmol/L (3.5-5.5); Sodium, Blood 139 mmol/L (136-145)
--- NOTE | 2021-09-12 07:19 | NUR ---
SHIFT SUMMARY - PT HAD AN ELEVATED TEMPERATURE LAST NOC, COOLING MEASURES PROVIDED, ALONG WITH TYLENOL AND TORADOL - SEE EMAR. PT'S TEMPERATURE RESOLVED AFTER THIS TREATMENT. SPC PUT OUT TEA COLORED URINE WITH PRECIPITATE IN THE TUBING. NO DRAINAGE SEEN AROUND SPC - WHICH WAS REPORTED OCCURRING DURING DAY SHIFT - DRESSING AROUND THE SPC CONTINUED DRY THROUGHOUT THE NIGHT. PT COMMUNICATES WITH WORDS, AND YES/NO COMMUNICATION - PT HAS A DIFFICULT TIME AT TIMES GETTING HER WORDS OUT. PT HAS A CONSULT IN PLACE FOR HER DECUB WOUNDS - REPORTED ORDER FOR DAILY PICTURES TO ONCOMING SHIFT. BOOTIES IN PLACE TO BILATERAL FEET. ARMS ELEVATED ON PILLOWS. CALL LIGHT WITHIN REACH - SOFT TOUCH. FLUIDS AT BEDSIDE - PT TOLERATED PO FLUIDS WITHOUT COMPLICATIONS. REPORT GIVEN TO AM SHIFT.
--- NOTE | 2021-09-12 18:05 | NUR ---
SHIFT SUMMARY PATIENT DENIES PAIN, NAUSEA, AND SHORTNESS OF BREATH. PATIENT IS LIFT FOR TRANSFERS, BUT MOSTLY BEDREST. PATIENT IS Q2 TURNS. PATIENT VERBALIZING TODAY, ABLE TO ANSWER QUESTIONS. PER , PATIENT IS MUCH MORE ORIENTED TODAY. PATIENT HAS MEDIPORT TO RIGHT CHEST WALL THAT IS ACCESSED AND RUNNING TKO. DRESSING TO WOUNDS CHANGED TODAY, NEW PICTURES TAKEN. DR. MCMAHON CONSULTED. WOUND CARE ORDERS CHANGED. SPEECH EVAL DONE. RECOMMEND THE [facility] SOFT DIET AND MEDICATIONS IN PUDDING. PATIENT DOES NEED TO BE FED. PATIENT IS EATING AND DRINKING WELL. PATIENT IS PLEASANT AND COOPERATIVE WITH CARE.
[2021-09-13 05:54] LABS: Mean Corpuscular HGB 26.8 pg (26.0-34.0); Mean Corpuscular HGB Conc 29.6 g/dL (31.5-36.5); Mean Corpuscular Volume 90 fL (80-100); Mean Platelet Volume 9.2 fL (9.1-12.4); Platelet Count 316 K/mm3 (150-400); RDW Coefficient Variation 18.2 % (11.7-14.2); Red Blood Cell Count 2.99 M/mm3 (3.80-5.20); White Blood Cell Count 8.12 K/mm3 (4.00-11.30)
--- NOTE | 2021-09-13 05:59 | NUR ---
DIAMOND GRINDER SUMMARY ADMITTED FOR UTI. PT WITH LEAKING SUPRAPUBIC CATHETER - FAMILY STATES IT LEAKS CHRONICALLY DESPITE FREQUENT CHANGES. PT RECEIVING IV ABX THROUGH HER MEDIPORT. SHE HAS MULTIPLE WOUNDS TO HER BACK AND COCCYX. WOUND TO COCCYX IS DRAINING BROWN PURULENCE. PT DENIES PAIN. SHE IS A TOTAL ASSIST SHE IS CONTRACTURED FROM MS. SHE IS ALERT AND ORIENTED X3, COOPERATIVE WITH CARE. SOMEWHAT SLOW TO RESPOND.
[2021-09-13 06:27] LABS: Albumin, Blood 1.2 g/dL (3.4-5.0); Anion Gap 5 mmol/L (6-16); Blood Urea Nitrogen 14 mg/dL (8-24); Bun/Creatinine Ratio 27.7 (12.0-20.0); CO2, Blood 35 mmol/L (21-32); Calcium, Blood 7.7 mg/dL (8.5-10.1); Chloride, Blood 100 mmol/L (98-108); Creatinine, Blood 0.51 mg/dL (0.40-1.00); Glomerular Filtration Rate >60 (60-); Glucose, Blood 59 mg/dL (70-99); Phosphorus, Blood 3.1 mg/dL (2.5-4.9); Potassium, Blood 3.5 mmol/L (3.5-5.5); Sodium, Blood 140 mmol/L (136-145)
[2021-09-13 15:22] LABS: Source, Urine Suprapubic Cath
[2021-09-13 15:34] LABS: Bilirubin, Urine Neg (Neg); Blood, Urine Neg (Neg); Glucose Qualitative, Urine Neg (Neg); Ketones, Urine Neg (Neg); Leukocyte Esterase, Urine 1+ (Neg); Nitrite, Urine Pos (Neg); Protein, Urine Neg (Neg); Urobilinogen, Urine NORM (Normal)
[2021-09-13 15:54] LABS: Appearance, Urine Hazy (Clear); Color, Urine Pale Yellow (P-Yellow)
[2021-09-13 15:56] LABS: Red Blood Cells, Urine Not Seen /hpf (0-2); Squamous Epithelial Cells Not Seen /hpf (Few)
[2021-09-13 15:57] LABS: Bacteria Many /hpf
--- NOTE | 2021-09-13 18:06 | NUR ---
SHIFT SUMMARY PATIENT MEDICATED X1 FOR PAIN, PATIENT DENIES NAUSEA AND SHORTNESS OF BREATH. PATIENT IS A LIFT FOR TRANSFERS. MALLORY IS PATENT AND DRAINING TO GRAVITY. PATIENT DRESSING ON WOUNDS CHANGED TODAY. PATIENT TOLERATED WELL. THE FIRST UA SENT CAME BACK CONTAMINATED, NEW SAMPLE TAKEN AND SENT TO LAB. PATIENT IS EATING AND DRINKING WELL. PATIENT DOES REQUIRE ASSISTANCE FEEDING. PATIENT IS PLEASANT AND COOPERATIVE WITH CARE.
[2021-09-14] MEDS ORDERED: TIZANIDINE HCL211 PO (03:24)
[2021-09-14] MEDS ORDERED: MODAFINIL100 M4 PO (03:25)
[2021-09-14] MEDS ORDERED: ROSUVASTATIN CA10 MG PO (03:25)
[2021-09-14] MEDS ORDERED: CYCL10 PO (03:29)
[2021-09-14] MEDS ORDERED: RENACIDIN IR (03:29)
--- NOTE | 2021-09-14 05:06 | NUR ---
SHIFT SUMMARY: PT IS WAS REPOSITIONED Q2. SHE TOLEREATED THE TURNS WELL AND DID NOT HAVE ANY C/0 PAIN. SHE DID HAVE A FEVER OF 100.3 @ 0450 AND WAS GIVEN 650 MG OF TYLENOL. WE WILL REASSESS HER TEMP. HER SUPRAPUBIC CATH IS LEAKING AROUND THE INSERTION SITE, AND USING ABDs WAS USED D/T AMOUNT OF LEAKAGE. ALL OTHER DRESSING ARE INTACT. WE WILL CONTINUE TO MONITOR.
--- NOTE | 2021-09-14 05:45 | NUR ---
PT HAD A TEMP OF 100.3, SHE WAS GIVEN 650 MG OF TYLENOL AND WE RECHECKED HER TEMP @ 30 MIN; IT WAS DOWN TO 98.5. SHE IS RESTING NOW.
[2021-09-14 06:31] LABS: BASOPHILS ABSOLUTE AUTO 0.08 K/mm3 (0.00-0.23); BASOPHILS PERCENT AUTO 1 % (0-2); EOSINOPHILS ABSOLUTE AUTO 0.24 K/mm3 (0.00-0.68); EOSINOPHILS PERCENT AUTO 2 % (0-6); Hematocrit 28.3 % (33.0-51.0); Hemoglobin 8.5 g/dL (11.5-16.0); IMMATURE GRAN ABSOLUTE AUTO 0.05 K/mm3 (0.00-0.10); IMMATURE GRAN PERCENT AUTO 1 % (0-1); LYMPHOCYTES ABSOLUTE AUTO 0.91 K/mm3 (0.84-5.20); LYMPHOCYTES PERCENT AUTO 9 % (21-46); MONOCYTES ABSOLUTE AUTO 0.86 K/mm3 (0.16-1.47); MONOCYTES PERCENT AUTO 9 % (4-13); Mean Corpuscular HGB 27.2 pg (26.0-34.0); Mean Corpuscular Volume 91 fL (80-100); Mean Platelet Volume 9.2 fL (9.1-12.4); NEUTROPHILS ABSOLUTE AUTO 7.98 K/mm3 (1.96-9.15); NEUTROPHILS PERCENT AUTO 79 % (41-73); Platelet Count 303 K/mm3 (150-400); RDW Coefficient Variation 17.8 % (11.7-14.2); RDW Standard Deviation 58.3 fL (35.1-46.3); Red Blood Cell Count 3.12 M/mm3 (3.80-5.20); White Blood Cell Count 10.12 K/mm3 (4.00-11.30)
[2021-09-14 06:43] LABS: Albumin, Blood 1.2 g/dL (3.4-5.0); Anion Gap 5 mmol/L (6-16); Blood Urea Nitrogen 15 mg/dL (8-24); Bun/Creatinine Ratio 21.4 (12.0-20.0); CO2, Blood 33 mmol/L (21-32); Calcium, Blood 7.6 mg/dL (8.5-10.1); Chloride, Blood 101 mmol/L (98-108); Glomerular Filtration Rate >60 (60-); Glucose, Blood 77 mg/dL (70-99); Phosphorus, Blood 3.4 mg/dL (2.5-4.9); Potassium, Blood 3.5 mmol/L (3.5-5.5); Sodium, Blood 139 mmol/L (136-145)
--- NOTE | 2021-09-14 18:40 | NUR ---
SHIFT SUMMARY PATIENT MEDICATED X2 FOR FEVER. PATIENT DENIES NAUSEA AND SHORTNESS OF BREATH. PATIENT MORE TIRED TODAY, SLEEPING ALOT. DRESSINGS CHANGED THIS SHIFT. PATIENT HAS SUPRAPUBIC CATH, PATENT AND DRAINING TO GRAVITY. CATH IS LEAKING FREQUENTLY. PER , THIS IS NORMAL. MEDICATIONS HAD TO BE CRUSHED TODAY DUE TO PATIENT SPITTING PILLS OUT, NOT ABLE TO FOLLOW DIRECTIONS TO SWALLOW PILL. PATIENT SEEMED MORE ALERT THIS AFTERNOON. VISITED FOR MOST OF DAY. PATIENT IS EATING AND DRINKING WELL. PATIENT IS PLEASANT AND COOPERATIVE WITH CARE.
--- NOTE | 2021-09-15 04:52 | NUR ---
SHIFT SUMMARY: THE PT's SUPRAPUBIC HAS BEEN LEAKING MORE THIS SHIFT. THE WILL BE BRINGING IN A REPLACEMENT CATHETER FROM [facility] TODAY. THE DRESSING TO THE CATHETER HAS TO BE CHANGED FREQUENTLY (Q3-4 HOURS). ALL WOUND DRESSINGS WERE CHANGED DURING DAYSHIFT AND ARE CDI THE PT HAS NO C/O PAIN. SHE HAS BEEN AFEBRILE THIS NOC SHIFT. WE'LL CONTINUE TO MONITOR THE REMAINDER OF THE SHIFT.
[2021-09-15 06:23] LABS: BASOPHILS ABSOLUTE AUTO 0.09 K/mm3 (0.00-0.23); BASOPHILS PERCENT AUTO 1 % (0-2); EOSINOPHILS ABSOLUTE AUTO 0.37 K/mm3 (0.00-0.68); EOSINOPHILS PERCENT AUTO 3 % (0-6); Hematocrit 28.3 % (33.0-51.0); Hemoglobin 8.3 g/dL (11.5-16.0); IMMATURE GRAN ABSOLUTE AUTO 0.07 K/mm3 (0.00-0.10); IMMATURE GRAN PERCENT AUTO 1 % (0-1); LYMPHOCYTES PERCENT AUTO 8 % (21-46); MONOCYTES ABSOLUTE AUTO 0.88 K/mm3 (0.16-1.47); MONOCYTES PERCENT AUTO 8 % (4-13); Mean Corpuscular HGB 27.5 pg (26.0-34.0); Mean Corpuscular HGB Conc 29.3 g/dL (31.5-36.5); Mean Corpuscular Volume 94 fL (80-100); Mean Platelet Volume 9.5 fL (9.1-12.4); NEUTROPHILS ABSOLUTE AUTO 9.45 K/mm3 (1.96-9.15); NEUTROPHILS PERCENT AUTO 80 % (41-73); Platelet Count 306 K/mm3 (150-400); RDW Coefficient Variation 18.3 % (11.7-14.2); Red Blood Cell Count 3.02 M/mm3 (3.80-5.20); White Blood Cell Count 11.76 K/mm3 (4.00-11.30)
[2021-09-15 06:46] LABS: Albumin, Blood 1.1 g/dL (3.4-5.0); Anion Gap 6 mmol/L (6-16); Blood Urea Nitrogen 22 mg/dL (8-24); Bun/Creatinine Ratio 28.4 (12.0-20.0); CO2, Blood 32 mmol/L (21-32); Calcium, Blood 7.5 mg/dL (8.5-10.1); Chloride, Blood 102 mmol/L (98-108); Creatinine, Blood 0.78 mg/dL (0.40-1.00); Glomerular Filtration Rate >60 (60-); Glucose, Blood 138 mg/dL (70-99); Phosphorus, Blood 3.1 mg/dL (2.5-4.9); Potassium, Blood 3.3 mmol/L (3.5-5.5); Sodium, Blood 140 mmol/L (136-145)
--- NOTE | 2021-09-15 09:13 | NUR ---
THIS NURSE CALLED DR. MENDEZ REGARDING CBG'S AND LONG ACTING INSULIN TO VERIFY THE DOSAGE TO BE GIVEN THIS MORNING. PER EMAR THIS MEDICATION WAS HELD YESTERDAY. AWAITING SPEAKING TO DR. MENDEZ PRIOR TO ADMINISTERING THIS MEDICATION AT THIS TIME.
--- NOTE | 2021-09-15 14:58 | NUR ---
Met with pt this afternoon, and she was experencing delerium during the visit. She attempted to drink water using her finger as a straw, and asked this RN to "pull the consuelo hook out of her nose" and then asked me to put my finger in her nostril so she could "get a drink out of her soda". The pt has had both [facility] intermittently over the past few years. Due to the involvement of the wounds, she is no longer a candidate for HH. However, she may be a good candidate for outpatient Palliative care, and [facility] happens to have palliative care. Will update Yacht Master, and palliative to remain available as needed.
--- NOTE | 2021-09-15 17:53 | NUR ---
SHIFT SUMMARY A/OX3, FORGETFUL. BEDREST WITH USE OF LIFT. AT BEDSIDE MOST OF DAY. WOUND DRESSINGS CHANGED THIS SHIFT WITH UPDATED PICTURES PLACED IN CHART. VSS, NO ACUTE CHANGES AT THIS TIME. BED IN LOWEST POSITION WITH CALL LIGHT IN REACH. WILL CONTINUE TO MONITOR AND REPORT TO ONCOMING RN.
--- NOTE | 2021-09-16 05:04 | NUR ---
SHIFT SUMMARY: PATIENT DENIES PAIN, ABLE TO ANSWER QUESTIONS WITH ONE WORD ANSWERS. SUPRA PUBIC CATHETER IS LEAKING. VSS, DRSG TO BUTTOCKS IS RE-ENFORCED. T&P GIVEN Q 2 HOURS, PO FLUIDS ENC.
[2021-09-16 08:29] LABS: BASOPHILS ABSOLUTE AUTO 0.09 K/mm3 (0.00-0.23); BASOPHILS PERCENT AUTO 1 % (0-2); EOSINOPHILS ABSOLUTE AUTO 0.33 K/mm3 (0.00-0.68); EOSINOPHILS PERCENT AUTO 2 % (0-6); Hematocrit 29.6 % (33.0-51.0); Hemoglobin 8.6 g/dL (11.5-16.0); IMMATURE GRAN ABSOLUTE AUTO 0.12 K/mm3 (0.00-0.10); IMMATURE GRAN PERCENT AUTO 1 % (0-1); LYMPHOCYTES ABSOLUTE AUTO 0.99 K/mm3 (0.84-5.20); LYMPHOCYTES PERCENT AUTO 6 % (21-46); MONOCYTES ABSOLUTE AUTO 1.11 K/mm3 (0.16-1.47); MONOCYTES PERCENT AUTO 7 % (4-13); Mean Corpuscular HGB Conc 29.1 g/dL (31.5-36.5); Mean Corpuscular Volume 93 fL (80-100); NEUTROPHILS ABSOLUTE AUTO 14.06 K/mm3 (1.96-9.15); NEUTROPHILS PERCENT AUTO 84 % (41-73); RDW Coefficient Variation 18.7 % (11.7-14.2); RDW Standard Deviation 59.9 fL (35.1-46.3); Red Blood Cell Count 3.18 M/mm3 (3.80-5.20)
[2021-09-16 08:45] LABS: Albumin, Blood 1.3 g/dL (3.4-5.0); Anion Gap 7 mmol/L (6-16); Blood Urea Nitrogen 25 mg/dL (8-24); Bun/Creatinine Ratio 28.9 (12.0-20.0); CO2, Blood 31 mmol/L (21-32); Calcium, Blood 7.9 mg/dL (8.5-10.1); Chloride, Blood 102 mmol/L (98-108); Creatinine, Blood 0.86 mg/dL (0.40-1.00); Glomerular Filtration Rate >60 (60-); Glucose, Blood 109 mg/dL (70-99); Phosphorus, Blood 2.7 mg/dL (2.5-4.9); Sodium, Blood 140 mmol/L (136-145)
[2021-09-16 08:51] LABS: Mean Platelet Volume 9.9 fL (9.1-12.4); Platelet Count 344 K/mm3 (150-400)
--- NOTE | 2021-09-16 14:38 | NUR ---
Spiritual Care With Spouse in the hallway as he was departing the room. Spouse was displaying evidence of exhaustion. Spouse has been a caregiver for pt. for a long time. Walked with spouse listening to life story as he heads out of the building. Spouse verbalizes gratitude for the attempt to see the Pt. I affirmed that care about supporting him as well. Spouse verbalizes gratitude for that as well.
--- NOTE | 2021-09-16 15:41 | NUR ---
CHANGE IN PT STATUS 1130AM Pts requested temp to be taken, he stated that when she is sick her MS s/sx are excerbated. Temp 101.9, Tylenol given PRN fever. aware, ordered BC STAT. 1515 Pt had 1 episode of emesis, Temp: 102.2, RR 20, HR 120, BP 134/76, O2 97% RA EWS scored 5, called , orders for fluid & another dose of Tylenol.
--- NOTE | 2021-09-16 18:30 | NUR ---
END OF SHIFT SUMMARY Pt had poor intake this shift, ate breakfast, but ate very little for lunch. This aftenoon pt had temp of 101.9, increased to 102.2. Oral tylenol given, ineffective. Pt had 2 episodes of emesis, with turning. This evening pt is somnolent, pt too tired to take PO meds. Tylenol supp given, pt still febrile. Notified of fever and vomiting episodes. Pt currently resting, at bedside.
--- NOTE | 2021-09-16 22:31 | NUR ---
VITAL SIGNS: PATIENT SCORES A 7 ON VIEWS SCORE. BP 134/65 TEMP. 102.8 RR 24 PULSE 116. SAT 93% ON RA. PATIENT IS LETHARGIC. IVF ARE INFUSING @ 100 ML/HR. DR FLORES IS NOTIFIED AND ORDERS TO CHANGE TYLENOL TO Q4 HR, GIVE 500 ML BOLUS. TYLENOL SUPP AND BOLUS WERE GIVEN.
--- NOTE | 2021-09-17 06:06 | NUR ---
SHIFT SUMMARY: PATIENT RESPONDED WELL TO FLUID BOLUS AND TYLENOL SUPPOSITORY. VS ARE NOW WNL. MORE ALERT THIS MORNING. SUPRA PUBIC CATH CONTINUES TO LEAK, 450 MLS MEASURED OUTPUT ON CATHETER. PATIENT DENIES PAIN OR DISCOMFORT. REFUSES WATER AND WILL ONLY DRINK SODA.
--- NOTE | 2021-09-17 07:58 | NUR ---
MD CALL DR MENDEZ CALLED WITH REPORT OF VITAL SIGNS. INCRESAED TEMP, HR, RR. WILL GIVE TYLENOL.
[2021-09-17 09:42] LABS: BASOPHILS ABSOLUTE AUTO 0.07 K/mm3 (0.00-0.23); BASOPHILS PERCENT AUTO 1 % (0-2); EOSINOPHILS ABSOLUTE AUTO 0.02 K/mm3 (0.00-0.68); EOSINOPHILS PERCENT AUTO 0 % (0-6); Hematocrit 27.6 % (33.0-51.0); IMMATURE GRAN ABSOLUTE AUTO 0.08 K/mm3 (0.00-0.10); IMMATURE GRAN PERCENT AUTO 1 % (0-1); LYMPHOCYTES ABSOLUTE AUTO 0.41 K/mm3 (0.84-5.20); LYMPHOCYTES PERCENT AUTO 4 % (21-46); MONOCYTES ABSOLUTE AUTO 0.57 K/mm3 (0.16-1.47); MONOCYTES PERCENT AUTO 5 % (4-13); Mean Corpuscular HGB 27.7 pg (26.0-34.0); Mean Corpuscular Volume 96 fL (80-100); Mean Platelet Volume 9.7 fL (9.1-12.4); NEUTROPHILS ABSOLUTE AUTO 10.21 K/mm3 (1.96-9.15); NEUTROPHILS PERCENT AUTO 90 % (41-73); Platelet Count 305 K/mm3 (150-400); RDW Coefficient Variation 19.8 % (11.7-14.2); RDW Standard Deviation 63.7 fL (35.1-46.3); Red Blood Cell Count 2.89 M/mm3 (3.80-5.20); White Blood Cell Count 11.36 K/mm3 (4.00-11.30)
[2021-09-17 09:45] LABS: Albumin, Blood 1.2 g/dL (3.4-5.0); Anion Gap 5 mmol/L (6-16); Blood Urea Nitrogen 21 mg/dL (8-24); Bun/Creatinine Ratio 28.2 (12.0-20.0); CO2, Blood 32 mmol/L (21-32); Calcium, Blood 7.6 mg/dL (8.5-10.1); Chloride, Blood 105 mmol/L (98-108); Creatinine, Blood 0.74 mg/dL (0.40-1.00); Glomerular Filtration Rate >60 (60-); Glucose, Blood 154 mg/dL (70-99); Phosphorus, Blood 2.7 mg/dL (2.5-4.9); Potassium, Blood 3.4 mmol/L (3.5-5.5); Sodium, Blood 142 mmol/L (136-145)
--- NOTE | 2021-09-17 14:07 | NUR ---
MD CALL DR MENDEZ CALLED S/P CALL FROM LAB WITH YEAST IN BLOOD CULTURE. DR MENDEZ ORDERED FLUCONAZOLE 200MG IV X 1 THEN 100MG IV DAILY, AND DOUBLE CHECK WITH PHARMACIST. PHARMACIST CALLED AND DOSE VERIFIED, ORDER PLACED.
--- NOTE | 2021-09-17 16:44 | NUR ---
RN NOTE MS BOLDEN HAS SAID VERY FEW WORDS TO ME TODAY. SHE SPOKE MORE WITH HER WHEN HE WAS HERE WITH HER. FEBRILE. DIFFICULT TO ASSESS FULL ORIENTATION SHE WAS MOSTLY NON-VERBAL. I TRIED SEVERAL TIMES TO GIVE HER HER ORAL MEDICATIONS THIS MORNING, BUT SHE SPIT THEM OUT. SHE SAID NO, AND DID NOT SWALLOW THEM. DR MENDEZ INFORMED. SHE DID TAKE HER OXY PRE DRESSING CHANGE WHEN HER WAS HERE, AND AGREED TO SWALLOW THAT. SHE TOLERATED HER PROTEIN POWDER MIXED IN VANILLA ENSURE. FEBRILE TODAY. TYLENOL GIVEN KS X 2. NEW IV ABX STARTED. CT ABD/PELVIS DONE TODAY. IV POTASSIUM INFUSING, THEN PLAN FOR DUFLUCAN IV BLOOD CULTURES CAME BACK POSITIVE FOR YEAST. DRESSING CHANGES DONE THIS MORNING. MEDIHONEY TO SACRAL WOUND, WET TO DRY WITH ABD PADS TO RIGHT UPPER BACK AND MID BACK AND SACRAL WOUND. NECROTIC/SLOUGHY SACRAL WOUND FULL THICKNESS. DR MENDEZ IS WANTING SURGERY TEAM TO REEVALUATE/RECONSULT FOR HER WOUND. INFORMATION PASSED ON TO SHANNON SIERRA. PT MOVED TO ROOM 306 AT 1605HRS. BACK POSITIVE FOR YEAST.
--- NOTE | 2021-09-17 18:24 | NUR ---
END OF SHIFT SUMMARY Assumed pt care at 1630, moved pt from SCU to room w/ lift. Handoff report at bedside, pt febrile all day, rechecked temporal temp @ 1800 temp 99.0. Pt lethergic, unable to take PO meds. Pt resting in bed, at bedside. Left message for surgeon regarding change in patients condition.
--- NOTE | 2021-09-17 20:40 | NUR ---
PT IS ALERT BUT ORIENTATION IS HARD TO ASSESS D/T ONLY ANSWERING SOME "YES/NO" Q'S AT THIS TIME. MS SYMPTOMS ARE EXACERBATED AT PRESENT AND PT IS UNABLE TO TAKE PO CURRENTLY D/T LACKING CONTROL OF TONGUE/MOUTH MOVEMENTS. PT IS ALSO OBSERVED W/INVOLUNTARY HEAD TURNING MOTION FROM SIDE TO SIDE. STATES IT'S ILLNESS INDUCED AND COMMON "WHEN SICK" AND DENIES SYMPTOMS OF TARDIVE DYSKINESIA THOUGH IT SLIGHTLY RESEMBLES THIS. HS PO MEDS HELD AND LONG ACTION INSULIN NOT GIVEN D/T REQUIRING NPO IN PRESENCE OF CURRENT ASPIRATION RISK. MOUTH CARE PROVIDED AND TURN SCHEDULE MAINTAINED.
[2021-09-18 07:57] LABS: BASOPHILS ABSOLUTE AUTO 0.05 K/mm3 (0.00-0.23); BASOPHILS PERCENT AUTO 1 % (0-2); EOSINOPHILS ABSOLUTE AUTO 0.13 K/mm3 (0.00-0.68); EOSINOPHILS PERCENT AUTO 2 % (0-6); Hematocrit 22.3 % (33.0-51.0); Hemoglobin 6.5 g/dL (11.5-16.0); Mean Corpuscular HGB Conc 29.1 g/dL (31.5-36.5); Mean Corpuscular Volume 96 fL (80-100); Mean Platelet Volume 9.9 fL (9.1-12.4); Platelet Count 291 K/mm3 (150-400); RDW Coefficient Variation 20.3 % (11.7-14.2); RDW Standard Deviation 68.5 fL (35.1-46.3); Red Blood Cell Count 2.32 M/mm3 (3.80-5.20); White Blood Cell Count 8.36 K/mm3 (4.00-11.30)
[2021-09-18 08:03] LABS: IMMATURE GRAN ABSOLUTE AUTO 0.04 K/mm3 (0.00-0.10); IMMATURE GRAN PERCENT AUTO 1 % (0-1); LYMPHOCYTES ABSOLUTE AUTO 0.96 K/mm3 (0.84-5.20); LYMPHOCYTES PERCENT AUTO 12 % (21-46); MONOCYTES ABSOLUTE AUTO 0.65 K/mm3 (0.16-1.47); MONOCYTES PERCENT AUTO 8 % (4-13); NEUTROPHILS ABSOLUTE AUTO 6.53 K/mm3 (1.96-9.15); NEUTROPHILS PERCENT AUTO 78 % (41-73)
[2021-09-18 08:19] LABS: Anion Gap 5 mmol/L (6-16); Blood Urea Nitrogen 20 mg/dL (8-24); Bun/Creatinine Ratio 32.9 (12.0-20.0); CO2, Blood 31 mmol/L (21-32); Calcium, Blood 7.3 mg/dL (8.5-10.1); Chloride, Blood 107 mmol/L (98-108); Creatinine, Blood 0.61 mg/dL (0.40-1.00); Glomerular Filtration Rate >60 (60-); Glucose, Blood 96 mg/dL (70-99); Phosphorus, Blood 2.4 mg/dL (2.5-4.9); Sodium, Blood 143 mmol/L (136-145)
[2021-09-18 13:57] LABS: Hematocrit 24.4 % (33.0-51.0)
--- NOTE | 2021-09-18 18:38 | NUR ---
END OF SHIFT SUMMARY Pt status improved this shift, afebrile, vital signs stable. Pt resting comfortably in bed. Continues to have poor oral intake, at bedside assisting with feeding. SSI/Lantus held today d/t low CBGs/poor intake. HOT MILL SHEARER evaluted pt, changed pt back to [facility] soft diet. Left hand swollen, elevated w/ pillow. Nyastatin pwd applied to skin folds. Suprapubic cath continue to leak at site.
[2021-09-19 04:45] LABS: Hematocrit 23.8 % (33.0-51.0); Hemoglobin 6.8 g/dL (11.5-16.0); Mean Corpuscular HGB 27.2 pg (26.0-34.0); Mean Corpuscular HGB Conc 28.6 g/dL (31.5-36.5); Mean Corpuscular Volume 95 fL (80-100); Mean Platelet Volume 10.1 fL (9.1-12.4); Platelet Count 337 K/mm3 (150-400); RDW Coefficient Variation 20.5 % (11.7-14.2); RDW Standard Deviation 69.8 fL (35.1-46.3); White Blood Cell Count 10.61 K/mm3 (4.00-11.30)
[2021-09-19 05:03] LABS: Albumin, Blood 1.1 g/dL (3.4-5.0); Anion Gap 5 mmol/L (6-16); Blood Urea Nitrogen 14 mg/dL (8-24); Bun/Creatinine Ratio 26.5 (12.0-20.0); CO2, Blood 31 mmol/L (21-32); Calcium, Blood 7.3 mg/dL (8.5-10.1); Chloride, Blood 106 mmol/L (98-108); Creatinine, Blood 0.53 mg/dL (0.40-1.00); Glomerular Filtration Rate >60 (60-); Glucose, Blood 164 mg/dL (70-99); Potassium, Blood 3.2 mmol/L (3.5-5.5); Sodium, Blood 142 mmol/L (136-145)
--- NOTE | 2021-09-19 05:25 | NUR ---
PT A & O TO SELF. BED-REST. ACCUCHECKS A/C. HS B/S 227, COVERED WITH 10 UNITS OF SCHEDULED L/A INSULIN. PT NON-VERBAL. HX MS. EXTENSIVE PRESSURE ULCERS ON COCCYX/SACRUM, BACK AND HEELS BILAT; DRESSINGS CHANGED. REPOSITIONED Q2HRS. HELD PO MEDS. PT AT RISK FOR ASPIRATION. V/S WNL. PT DENIED PAIN. PT WAITING FOR PLACEMENT. IV A/B Q6HRS. MEDIPORT R) CHEST FLUSHED W/O DIFFICULTY; GOOD BLOOD RETURN. BED ALARM ON.
--- NOTE | 2021-09-19 12:34 | NUR ---
pt laying in bed very quiet, rarely speaking and is very soft, confused, lungs are dim t/o, resp even and unlabored, no cough noted, on r/a hrr, +1 edema noted to b/l le, ppp faint, cap refill <3sec vs stable, afebrile, iv site is mediport to rcw, site is clear and patent, infusing ns tko at this time, btx4, hypoactive, had a large bm this late morning, has chronic supra pubic cath draing cloudy laurie urine, skin has multible wounds to back and coccyx, ext are pretty contracted, jarett, kyphosis noted to back, head sits forward, call light in reach.
--- NOTE | 2021-09-19 17:35 | NUR ---
Pt got a bit nauseated, with scant emisis, notified Dr. Bird recieved order for zofran, this was given and was helpful. states she's feeling better, spouce in room, call light in reach.
--- NOTE | 2021-09-20 06:07 | NUR ---
Pt a & o to self. Pt confused at times. Pt denied any pain this shift. Pt got prn po alka at change of shift. V/S WNL. Turned q2hrs, 2-assist. Pt had 2 small loose BM's. Dressing to coccyx/sacrum changed. Pt had multiple sips of pepsi throughout night. Took pills whole mixed in pudding. Mediport to R) chest with TKO NS. Bed alarm on at all times. HS BS 202; scheduled insulin 10 units given; no extra hs coverage indicated. Will continue to monitor.
--- NOTE | 2021-09-20 08:00 | NUR ---
Pt laying in bed awake a/o but forgetful, very soft spoken, severe kyphosis noted with head sitting forward, lungs dim t/o, resp even and unlabored, no cough noted, hrr, trace edema noted to b/l le, ppp+1, cap refill < 3sec, vs stable, afebrile, iv site is mediport running ns tko, btx4, hypoactive, suprapubic cath noted, leaks some, extensive wounds to sacral area and left back, mid back, attends in place, had a large bm yesterday and through the night, ext are contracted, with little movement, jarett, call light in reach.
[2021-09-20] MEDS ORDERED: Diflucan100 MG PO (10:13)
--- NOTE | 2021-09-20 12:20 | NUR ---
pt has been discharged to home on hospice, lilo here to take her home, her dressing was changed on sacral area and on left back. supplies in room were sent with lilo, mediport was packed with heperin and deaccessed by charge nurse, medicated for pain for ride home, instructions given to lilo from charge nurse, he verbalized understanding. left via gurney with transport with all belongings.
== END 2021-09-20 12:20 | disposition hospice, home (50) | DRG 871 ==
LOC: ER 09:05 → MEDS 13:41
PROVIDERS: Internal Medicine; Student in an Organized Health Care Education/Training Program; ADMIT Hospitalist
DX: A41.9 Sepsis, unspecified organism (principal); L89.523 Pressure ulcer of left ankle, stage 3; L89.154 Pressure ulcer of sacral region, stage 4; G92.8 Other toxic encephalopathy; E44.1 Mild protein-calorie malnutrition; M46.28 Osteomyelitis of vertebra, sacral and sacrococcygeal region; Z66 Do not resuscitate; Z51.5 Encounter for palliative care; L89.622 Pressure ulcer of left heel, stage 2; E11.69 Type 2 diabetes mellitus with other specified complication; L89.612 Pressure ulcer of right heel, stage 2; L89.102 Pressure ulcer of unspecified part of back, stage 2; E87.6 Hypokalemia; E83.39 Other disorders of phosphorus metabolism; D63.8 Anemia in other chronic diseases classified elsewhere; G35 Multiple sclerosis; I10 Essential (primary) hypertension; F41.9 Anxiety disorder, unspecified; F32.A Depression, unspecified; E78.5 Hyperlipidemia, unspecified; Z22.39 Carrier of other specified bacterial diseases; Z88.1 Allergy status to other antibiotic agents; Z74.01 Bed confinement status; Z88.8 Allergy status to other drugs, medicaments and biological substances; Z79.899 Other long term (current) drug therapy; Z93.50 Unspecified cystostomy status; Z79.4 Long term (current) use of insulin; Z90.710 Acquired absence of both cervix and uterus; Z98.890 Other specified postprocedural states
CPT/HCPCS: 36415; 71045; 72193; 80048; 80053; 80069; 81001; 82248; 82947; 83605; 83735; 84100; 84145; 85014; 85018; 85025; 85027; 85610; 85651; 85730; 86140; 87040; 87077; 87086; 87186; 92526; 92610; 93005; 93010; 96365; 96366; 96368; 96375; 96376; 99285-25; A9270; J0295; J0878; J1200; J1450; J1642; J1650; J1815; J1885; J2020; J2405; J2543; J3370; J3480; J7030; J7040; J7050; J7060; Q9967